=== PATIENT | male | born 1960 | race Caucasian/White ===

== ENCOUNTER 2017-02-26 10:43 | Day surgery (SDC) | payer MEDICARE, OTHER ==
[2017-02-26 11:13] VITALS: TEMP 98.8
[2017-02-26] MEDS ORDERED: SODIUM CHLORIDE 0.9% 500 ML IV ONE (11:26)
[2017-02-26] MEDS ORDERED: fentaNYL (PF) 50 MCG/ML 2 ML AMP ONE (11:51)
[2017-02-26] MEDS ORDERED: MIDAZOLAM 2 MG/2 ML VIAL ONE (11:52)
[2017-02-26] MEDS: BENZOCAINE SPRAY 1 SPRAY CAN MUCOUS MEM ONE ×4 (12:00→12:13)
[2017-02-26] MEDS ORDERED: fentaNYL (PF) 50 MCG/ML 2 ML AMP IVP ONE ×2 (12:09→12:10)
[2017-02-26] MEDS ORDERED: MIDAZOLAM 2 MG/2 ML VIAL IVP ONE ×4 (12:09→12:15)
[2017-02-26 13:43] VITALS: BP 115/77; PULSE 68; RESP 18
--- NOTE | 2017-03-11 16:11 | ECHOT ---
TRANSESOPHAGEAL ECHOCARDIOGRAM This transesophageal echocardiogram was performed after giving intravenous sedation with Versed and fentanyl. The patient tolerated the procedure well. FINDINGS: Left ventricular chamber is normal in size with normal left ventricular systolic function. Mitral valve morphology is normal. Aortic valve is minimally sclerotic. Mild aortic regurgitation is noted. It is a tricuspid valve. Tricuspid valve morphology is normal. Right ventricular and right atrial chambers are normal in size. Interatrial septum is intact. There is no evidence of any PFO by saline contrast study. FINAL IMPRESSION: 1. This transesophageal echocardiogram reveals mild degree of aortic regurgitation. Aortic valve is mildly thickened and it is tricuspid. 2. Aortic root is normal in size. 3. Mitral valve morphology is normal. 4. Left ventricular systolic function is normal. 5. There is no evidence of any PFO. MMODL / IJN: [id number] /
== END 2017-02-26 14:02 | disposition home or self-care (01) ==
LOC: CATHCVL 10:43
PROVIDERS: ATTEND Internal Medicine Cardiovascular Disease
DX: I35.1 Nonrheumatic aortic (valve) insufficiency (principal); R07.89 Other chest pain; Z82.49 Family history of ischemic heart disease and other diseases of the circulatory system; F17.210 Nicotine dependence, cigarettes, uncomplicated; Z88.0 Allergy status to penicillin
CPT/HCPCS: 99152; 93312; 93320; 93325; J2250; J3010

== ENCOUNTER 2017-03-06 15:38 | Inpatient (IN) | payer MEDICARE, MEDICAID ==
--- NOTE | 2017-03-06 16:30 | ED ---
General Adult HPI - General Chief complaint: Psychiatric Symptoms Stated complaint: Mental Health Time Seen by Provider: 03/06/17 15:53 Source: patient, police Mode of arrival: ambulatory Limitations: no limitations - History of Present Illness Initial comments: This is a 56-year-old male with a history of schizophrenia presents emergency Department by pulse or ordered petition. He reportedly has not been taking his medications. The patient does not contribute much to the history and just states "no,". He denies suicidal or homicidal ideation. No physical complaints. - Related Data Home Medications Medication Instructions Recorded Confirmed Albuterol Inhaler [Ventolin Hfa 2 puff INHALATION RT-QID PRN 02/22/17 03/06/17 Inhaler] Ranitidine HCl [Zantac] 150 mg PO DAILY PRN 02/22/17 03/06/17 Acetaminophen Tab [Tylenol] 500 mg PO Q6H PRN 02/26/17 03/06/17 risperiDONE MICROSPHERES 50 mg IM Q14D 03/06/17 03/06/17 [RisperDAL CONSTA] Allergies Allergy/AdvReac Type Severity Reaction Status Date / Time Penicillins Allergy Unknown Verified 03/06/17 16:15 Childhood Review of Systems ROS Statement: Those systems with pertinent positive or pertinent negative responses have been documented in the HPI. ROS Other: All systems not noted in ROS Statement are negative. Past Medical History Past Medical History: GERD/Reflux Additional Past Medical History / Comment(s): SEE H & P OF DR. TOSCANO. NOT SURE WHY HE TAKES ALBUTERAL INHALER. History of Any Multi-Drug Resistant Organisms: None Reported Past Surgical History: Tonsillectomy Past Anesthesia/Blood Transfusion Reactions: No Reported Reaction Past Psychological History: Schizophrenia Smoking Status: Current every day smoker Past Alcohol Use History: None Reported Past Drug Use History: None Reported - Past Family History Mother Family Medical History: No Reported History General Exam - General Exam Comments Initial Comments: Constitutional: Awake alert Appears comfortable Head: Normocephalic atraumatic Eyes: no conjunctival injection No scleral icterus EOMI Neck: No JVD Supple Heart: Regular rate rhythm normal S1-S2 no murmurs Lungs: Clear to auscultation bilaterally No wheezing No rales Abdomen: Soft nondistended nontender Extremities: Non edematous DP pulses intact Radial pulses intact Neuro: A&Ox3 No focal neurologic deficits Psych: Appropriate mood and affect Limitations: no limitations Course Vital Signs 03/06/17 15:40 Temperature 97.9 F Pulse Rate 115 H Respiratory 20 Rate Blood Pressure 138/92 O2 Sat by Pulse 99 Oximetry Medical Decision Making - Medical Decision Making Patient was evaluated by EPS and they recommend inpatient therapy. Patient will be admitted upstairs. The request basic blood work. Patient is currently stable. - Lab Data Lab Results 03/06/17 Range/Units 19:18 POC Glucose (mg/dL) 114 H (75-99) mg/dL POC Glu [place] Interpreter ID Ramy Rojo Disposition Clinical Impression: Schizophrenia Disposition: ADMITTED IP TO THIS HOSP Condition: Stable
[2017-03-06] MEDS ORDERED: FAMOTIDINE 20 MG TAB PO PRN (17:39)
[2017-03-06] MEDS ORDERED: ALBUTEROL INHALER 60 PUFF/8 GM INHALER INHALATION PRN (17:39)
[2017-03-06 19:23] LABS: Glucose,Whole Blood 114 mg/dL (75-99)
[2017-03-06 19:33] LABS: Basophils # (A) 0.1 k/uL (0-0.2); Basophils % (A) 0 %; CH 31.3; CHCM 34.2; Eosinophils # (A) 0.2 k/uL (0-0.7); Eosinophils % (A) 1 %; HCT 40.6 % (39.0-53.0); HDW 2.69; HGB 13.1 gm/dL (13.0-17.5); Luc # (Auto) 0.17; Luc % (Auto) 1; Lymphocytes # (A) 1.7 k/uL (1.0-4.8); Lymphocytes % (A) 13 %; MCH 29.7 pg (25.0-35.0); MCHC 32.4 g/dL (31.0-37.0); MCV 91.7 fL (80.0-100.0); Mean Platelet Volume 7.6; Monocytes # (A) 0.7 k/uL (0-1.0); Monocytes % (A) 5 %; Neutrophils # (A) 10.2 k/uL (1.3-7.7); Neutrophils % (A) 79 %; RBC 4.42 m/uL (4.30-5.90); RDW 13.7 % (11.5-15.5); WBC 12.9 k/uL (3.8-10.6); WBC (Perox) 13.19
[2017-03-06 19:44] LABS: ALT 55 U/L (21-72); AST 24 U/L (17-59); Alkaline Phosphatase 125 U/L (38-126); Anion Gap 12 mmol/L; Blood Urea Nitrogen 11 mg/dL (9-20); Calcium 9.1 mg/dL (8.4-10.2); Carbon Dioxide 21 mmol/L (22-30); Chloride 102 mmol/L (98-107); Glucose 121 mg/dL (74-99); Non-African American GFR(MDRD) >60 (>60 ml/min/1.73 sqM); Potassium 4.4 mmol/L (3.5-5.1); Sodium 135 mmol/L (137-145); Total Bilirubin 0.2 mg/dL (0.2-1.3); Total Protein 6.3 g/dL (6.3-8.2)
[2017-03-06 20:06] VITALS: RESP 16
[2017-03-06] MEDS ORDERED: LORazepam 1 MG TAB PO PRN (20:13)
[2017-03-06] MEDS ORDERED: ACETAMINOPHEN TAB 325 MG TAB PO PRN (20:13)
[2017-03-06] MEDS ORDERED: MAGNESIUM HYDROXIDE 2,400 MG/10 ML CUP PO PRN (20:13)
[2017-03-06] MEDS ORDERED: ZIPRASIDONE 20 MG VIAL IM PRN (20:13)
[2017-03-06] MEDS ORDERED: MAG HYDROX/AL HYDROX/SIMETH 30 ML CUP PO PRN (20:13)
[2017-03-06] MEDS: INSULIN LISPRO (humaLOG) 300 UNIT/3 ML VIAL SQ SCH (21:17)
[2017-03-06] MEDS ORDERED: RX INFO: IV CONTRAST WAS GIVEN 1 EACH MISC MISCELLANE PRN (21:32)
[2017-03-06] MEDS ORDERED: MORPHINE SULFATE 2 MG/ML SYRINGE IVP PRN (21:33)
[2017-03-06] MEDS: IOHEXOL 350 MG/ML 25 ML BOTTLE (ORAL USE) PO PRN ×2 (21:59→22:59)
[2017-03-06 22:49] LABS: Hemoglobin A1C 6.2 % (4.2-6.1)
[2017-03-06 23:40] LABS: Appearance,Urine Clear (Clear); Bilirubin,Urine Negative (Negative); Glucose,Urine (UA) Negative (Negative); Ketones,Urine Trace (Negative); Leukocyte Esterase,Urine Negative (Negative); Nitrite,Urine Negative (Negative); Protein,Urine Trace (Negative); Specific Gravity,Urine 1.013 (1.001-1.035); UA Billing (MACRO vs. MICRO) CHEM; Urobilinogen,Urine <2.0 mg/dL (<2.0)
--- NOTE | 2017-03-06 23:58 | P.CONS ---
History of Present Illness - Reason for Consult Consult date: 03/06/17 - Chief Complaint Abdominal pain and left foot pain - History of Present Illness 66 y/o Male with past medical history significant for intermittent asthma here in the psychiatry unit because of schizophrenia. Initially he was not cooperative with the ER staff but when he came up to the psych unit he started becoming cooperative. He told the staff that he was having abdominal pain ( which he is calling chest pain ) and left foot pain. According to the patient he was seen in an outside facility for chest pain several weeks ago and over there he had a chemical stress test that was normal according to him. He has been having abdominal pain for about a week, the pain is located in the upper part of the abdomen. It has no relationship to food. He denied having any fevers or chills. No nausea or vomiting, no diarrhea. He has also been having some left foot pain that is worse with ambulation. Patient denied having any history of abdominal hernia or surgery in the past. Review of Systems 12 point review of system performed, Negative except for HPI Past Medical History Past Medical History: Asthma, GERD/Reflux Additional Past Medical History / Comment(s): SEE H & P OF DR. TOSCANO. NOT SURE WHY HE TAKES ALBUTERAL INHALER. History of Any Multi-Drug Resistant Organisms: None Reported Past Surgical History: Tonsillectomy Past Anesthesia/Blood Transfusion Reactions: No Reported Reaction Past Psychological History: Schizophrenia Smoking Status: Current every day smoker Past Alcohol Use History: None Reported Past Drug Use History: None Reported - Past Family History Mother Family Medical History: No Reported History Medications and Allergies Home Medications Medication Instructions Recorded Confirmed Type Albuterol Inhaler [Ventolin Hfa 2 puff INHALATION RT-QID PRN 02/22/17 03/06/17 History Inhaler] Ranitidine HCl [Zantac] 150 mg PO DAILY PRN 02/22/17 03/06/17 History Acetaminophen Tab [Tylenol] 500 mg PO Q6H PRN 02/26/17 03/06/17 History risperiDONE MICROSPHERES 50 mg IM Q14D 03/06/17 03/06/17 History [RisperDAL CONSTA] Allergies Allergy/AdvReac Type Severity Reaction Status Date / Time Penicillins Allergy Unknown Verified 03/06/17 16:15 Childhood Physical Exam Vitals: Vital Signs Temp Pulse Pulse Resp BP BP Pulse Ox 03/06/17 20:05 98.4 F 88 16 119/77 99 03/06/17 15:40 97.9 F 115 H 20 138/92 99 Intake and Output 03/06/17 03/06/17 03/07/17 14:59 22:59 06:59 Other: Weight 84.64 kg Patient Weight 03/07/17 06:59 Weight 84.64 kg Constitutional: No acute distress, conversant, pleasant Eyes:Anicteric sclerae, moist conjunctiva, no lid-lag, PERRLA, ENMT: Oropharynx clear, no erythema, exudates Neck: Supple, FROM, no masses, or JVD, No carotid bruits, No thyromegaly Lungs: Clear to auscultation, Clear to percussion, Normal respiratory effort, no accessory muscle use Cardiovascular: Heart regular in rate and rhythm, No murmurs, gallops, or rubs, No peripheral edema Abdominal: Soft, epigastric erythematous bulging that is tender to touch, no guarding, rebound or rigidity, Normoactive bowel sounds, No hepatomegaly, No splenomegaly, No palpable mass Skin: Normal temperature, tone, texture, turgor, no induration, No subcutaneous nodules, No rash, lesions, No ulcers Extremities: No digital cyanosis, No clubbing, Pedal pulses intact and symmetrical, Radial pulses intact and symmetrical, No calf tenderness Psychiatric: Alert and oriented to person, place and time, appropriate affect, intact judgement Neuro: Muscles Strength 5/5 in all 4 extremities, Sensation to light touch grossly present throughout, Cranial nerves II-XII grossly intact, no focal sensory deficits Results CBC & Chem 7: 03/06/17 19:19 03/06/17 19:19 Labs: Abnormal Lab Results - Last 24 Hours (Table) 03/06/17 03/06/17 03/06/17 Range/Units 19:18 19:19 19:19 WBC 12.9 H (3.8-10.6) k/uL Plt Count 573 H (150-450) k/uL Neutrophils # 10.2 H (1.3-7.7) k/uL Sodium 135 L (137-145) mmol/L Carbon Dioxide 21 L (22-30) mmol/L Glucose 121 H (74-99) mg/dL POC Glucose (mg/dL) 114 H (75-99) mg/dL Hemoglobin A1c (4.2-6.1) % Albumin 3.1 L (3.5-5.0) g/dL Urine Protein (Negative) Urine Ketones (Negative) 03/06/17 03/06/17 Range/Units 19:19 19:52 WBC (3.8-10.6) k/uL Plt Count (150-450) k/uL Neutrophils # (1.3-7.7) k/uL Sodium (137-145) mmol/L Carbon Dioxide (22-30) mmol/L Glucose (74-99) mg/dL POC Glucose (mg/dL) (75-99) mg/dL Hemoglobin A1c 6.2 H (4.2-6.1) % Albumin (3.5-5.0) g/dL Urine Protein Trace H (Negative) Urine Ketones Trace H (Negative) Assessment and Plan Plan: #1 acute epigastric abdominal pain: Likely secondary to upper umbilical hernia Stat computed tomography scan of the abdomen to rule out hernia incarceration, further management decisions based on the CT results Check lactic acid Consults Gen. surgery Opiates for pain as needed #2 left foot pain: Likely musculoskeletal Tylenol when necessary #3 schizophrenia: Continue antipsychotics
--- NOTE | 2017-03-07 00:26 | CT ---
EXAMINATION TYPE: CT abdomen pelvis w con DATE OF EXAM: 03/07/2017 COMPARISON: NONE HISTORY: hernia CT DLP: 806.40 mGycm Automated exposure control for dose reduction was used. TECHNIQUE: Helical acquisition of images was performed from the lung bases through the pelvis. CONTRAST: Performed with Oral Contrast and with IV Contrast, patient injected with 100 mL of Omnipaque 300. FINDINGS: Lung bases are clear. There is no pleural effusion. Heart size is normal. There is a small hiatal her aj. Spleen pancreas gallbladder appear normal. Bile ducts are not dilated. Left lobe of the liver i s posteriorly displaced by an epigastric anterior mass. There is no adrenal mass. Kidneys show satisfactory contrast opacification. There is no hydronephrosi s. I see no intestinal wall thickening. There are no dilated loops. Appendix appears normal. Bladder distends smoothly. There is no pelvic mass. There is no ascites. There is narrowing at L5-S1 disc spa ce. I see no bony destructive process. There is a large low density mass in the upper anterior abdominal wall. This mass measures overall 13 x 8 cm and appears to be displacing the left lobe of the liver posteriorly. The mass extends through the anterior abdominal wall into the subcutaneous tissues. There is low attenuation also in the abdo sabrina wall musculature adjacent to the mass. Margins of the mass are irregular. IMPRESSION: THERE IS A LARGE EPIGASTRIC MASS ON BOTH SIDES OF THE ANTERIOR ABDOMINAL WALL. I WOULD CONSIDER MORE LIKELY THE POSSIBILITY OF ABDOMINAL WALL HEMATOMA AND MUSCLE TEAR. THIS DOES NOT APPEAR TO BE ANY TYP E OF HERNIA. THE MASS HAS DENSITY OF 24 WHICH IS CONSISTENT WITH OLD HEMORRHAGE OR A SEROMA. ABSCESS IS IN THE DIFFERENTIAL DIAGNOSIS. THE POSSIBILITY OF A SUPERFICIAL TUMOR OR ABSCESS OR HEMATOMA OF THE LEFT LOBE OF THE LIVER CANNOT BE ENTIRELY EXCLUDED. THERE IS A TINY UMBILICAL HERNIA THAT MEASURES 2 X 1 CM THAT CONTAINS FAT.
[2017-03-07 06:21] VITALS: BP 121/77; PULSE 105; TEMP 97.8
[2017-03-07 06:23] LABS: Glucose,Whole Blood 127 mg/dL (75-99)
[2017-03-07] MEDS: INSULIN LISPRO (humaLOG) 300 UNIT/3 ML VIAL SQ SCH ×3 (08:20→17:11)
[2017-03-07 08:45] LABS: Basophils % (A) 0 %; CH 30.3; CHCM 32.1; Eosinophils # (A) 0.1 k/uL (0-0.7); Eosinophils % (A) 1 %; HCT 41.1 % (39.0-53.0); HDW 2.74; HGB 13.4 gm/dL (13.0-17.5); Hypochromasia Slight; Luc # (Auto) 0.27; Luc % (Auto) 2; Lymphocytes % (A) 16 %; MCH 30.8 pg (25.0-35.0); MCHC 32.6 g/dL (31.0-37.0); MCV 94.5 fL (80.0-100.0); Mean Platelet Volume 7.2; Monocytes # (A) 0.7 k/uL (0-1.0); Monocytes % (A) 5 %; Neutrophils # (A) 9.7 k/uL (1.3-7.7); Neutrophils % (A) 76 %; RBC 4.35 m/uL (4.30-5.90); RDW 13.1 % (11.5-15.5); WBC 12.8 k/uL (3.8-10.6); WBC (Perox) 13.27
[2017-03-07 09:07] LABS: Anion Gap 13 mmol/L; Blood Urea Nitrogen 7 mg/dL (9-20); Calcium 9.5 mg/dL (8.4-10.2); Carbon Dioxide 25 mmol/L (22-30); Chloride 101 mmol/L (98-107); Glucose 101 mg/dL (74-99); Non-African American GFR(MDRD) >60 (>60 ml/min/1.73 sqM); Potassium 4.8 mmol/L (3.5-5.1); Sodium 139 mmol/L (137-145)
[2017-03-07 12:32] LABS: Glucose,Whole Blood 101 mg/dL (75-99)
--- NOTE | 2017-03-07 12:34 | P.PN ---
Subjective Progress Note Date: 03/07/17 Principal diagnosis: abd pain Patient is a 56-year-old male with a past medical history of schizophrenia and depressive disorder who was brought in secondary to necrotic behaviors. We will consult elevated for medical management. He was found to have abdominal pain and a large abdominal wall mass. CT was performed which showed possible hematoma versus abscess. General surgery has been consult it. Patient seen and examined at bedside. He states that this lesion has been there approximately one week. He denies any trauma to the area, falls, self inflicted injury. He states that there was never a bruise there area he also reports decreased appetite and poor ability to intake food. He reports no nausea or vomiting. He has not had any diarrhea. He states that the lesion hurts more with palpation and movement. He has no other complaints currently. Objective - Vital Signs Vital signs: Vital Signs Temp 97.8 F 03/07/17 06:21 Pulse 105 H 03/07/17 06:21 Resp 16 03/07/17 06:21 BP 121/77 03/07/17 06:21 Pulse Ox 99 03/06/17 20:05 Intake & Output 03/06/17 03/07/17 03/07/17 18:59 06:59 18:59 Weight 84.64 kg - Exam General: non toxic, no distress, appears at stated age Derm: Erythema and warmth on abdominal mass, no rashes, no lesions Head: atraumatic, normocephalic, symmetric Eyes: EOMI, no lid lag, anicteric sclera ENT: no post nasal drip, no thrush Mouth: no lip lesion, mucus membranes moist Cardiovascular: S1S2 reg, no murmur, positive posterior tibial pulse bilateral, Lungs: CTA bilateral, no rhonchi, no rales , no accessory muscle use Abdominal: soft, tender to palpation of mass area, this is a non-fluctuant area and extending from approximately 2 inches above the umbilicus to just below the lower margin of the ribs, and is excruciatingly tender to palpation., no guarding, no appreciable organomegaly Ext: no gross muscle atrophy, no edema, no contractures Neuro: CN II-XI grossly intact, no focal neuro deficits Psych: Alert, oriented, flat affect - Labs CBC & Chem 7: 03/07/17 08:06 03/07/17 08:06 Labs: Abnormal Lab Results - Last 24 Hours (Table) 03/06/17 03/06/17 03/06/17 Range/Units 19:18 19:19 19:19 WBC 12.9 H (3.8-10.6) k/uL Plt Count 573 H (150-450) k/uL Neutrophils # 10.2 H (1.3-7.7) k/uL Sodium 135 L (137-145) mmol/L Carbon Dioxide 21 L (22-30) mmol/L BUN (9-20) mg/dL Glucose 121 H (74-99) mg/dL POC Glucose (mg/dL) 114 H (75-99) mg/dL Hemoglobin A1c (4.2-6.1) % Albumin 3.1 L (3.5-5.0) g/dL Urine Protein (Negative) Urine Ketones (Negative) 03/06/17 03/06/17 03/07/17 Range/Units 19:19 19:52 06:20 WBC (3.8-10.6) k/uL Plt Count (150-450) k/uL Neutrophils # (1.3-7.7) k/uL Sodium (137-145) mmol/L Carbon Dioxide (22-30) mmol/L BUN (9-20) mg/dL Glucose (74-99) mg/dL POC Glucose (mg/dL) 127 H (75-99) mg/dL Hemoglobin A1c 6.2 H (4.2-6.1) % Albumin (3.5-5.0) g/dL Urine Protein Trace H (Negative) Urine Ketones Trace H (Negative) 03/07/17 03/07/17 03/07/17 Range/Units 08:06 08:06 12:31 WBC 12.8 H (3.8-10.6) k/uL Plt Count 562 H (150-450) k/uL Neutrophils # 9.7 H (1.3-7.7) k/uL Sodium (137-145) mmol/L Carbon Dioxide (22-30) mmol/L BUN 7 L (9-20) mg/dL Glucose 101 H (74-99) mg/dL POC Glucose (mg/dL) 101 H (75-99) mg/dL Hemoglobin A1c (4.2-6.1) % Albumin (3.5-5.0) g/dL Urine Protein (Negative) Urine Ketones (Negative) Assessment and Plan Plan: Abdominal wall mass -Differentially includes hematoma versus abscess -Await general surgery consult, I suspect that this will likely need to be drained -Monitor CBC, may need empiric antibiotics pending surgery consultation Mild intermittent asthma -When necessary breathing treatments Schizophrenia -Your psychiatric management We will continue to follow along with you, I suspect that if this needs to be drained patient will need to be transferred to the psych unit Spoke with the psychiatric nurse after patient was evaluated by surgery and he will need surgical procedure in a.m. and therefore will be transferred to the general medical surgical floor. Psychiatry will continue to follow.
--- NOTE | 2017-03-07 15:33 | P.GSCN ---
History of Present Illness Consult date: 03/07/17 Reason for Consult: Abdominal wall mass History of present illness: Patient is a 56-year-old male with known schizophrenia. He came to the hospital after he was found to not be taking his medications appropriately. During the course of his evaluation he was found to have a upper abdominal swelling that is painful. He describes having this for the last week or so. No history of similar events. Denies any trauma to that area self-inflicted or other. No prior surgeries. Patient is denying fevers. His white blood cell count is elevated. He is afebrile. He is slightly tachycardic. He was unaware that the skin overlying this was pink so it is unclear how long the suspected area of erythema has been present. He seems appropriate at this time. CAT scan was performed. This was reviewed. There is a fluid collection involving the anterior abdominal wall that does extend below the fascia into the perihepatic region. This does not appear to be necessarily emanating from the liver as much as it is pushing onto the liver margin anteriorly. No mass lesion is seen. The Hounsfield units suggest fluid rather than solid. Hematoma thought to be less likely then infectious fluid. Review of Systems The patient denies any acute changes in vision or hearing, no dysphagia or odynophagia, no chest pain or shortness of breath, no dysuria or hematuria, no headache, no runny nose, no rectal bleeding or melena, no unexplained weight loss Past Medical History Past Medical History: Asthma, GERD/Reflux Additional Past Medical History / Comment(s): SEE H & P OF DR. TOSCANO. NOT SURE WHY HE TAKES ALBUTERAL INHALER. History of Any Multi-Drug Resistant Organisms: None Reported Past Surgical History: Tonsillectomy Past Anesthesia/Blood Transfusion Reactions: No Reported Reaction Past Psychological History: Schizophrenia Smoking Status: Current every day smoker Past Alcohol Use History: None Reported Past Drug Use History: None Reported - Past Family History Mother Family Medical History: No Reported History Medications and Allergies Home Medications Medication Instructions Recorded Confirmed Type Albuterol Inhaler [Ventolin Hfa 2 puff INHALATION RT-QID PRN 02/22/17 03/06/17 History Inhaler] Ranitidine HCl [Zantac] 150 mg PO DAILY PRN 02/22/17 03/06/17 History Acetaminophen Tab [Tylenol] 500 mg PO Q6H PRN 02/26/17 03/06/17 History risperiDONE MICROSPHERES 50 mg IM Q14D 03/06/17 03/06/17 History [RisperDAL CONSTA] Allergies Allergy/AdvReac Type Severity Reaction Status Date / Time Penicillins Allergy Unknown Verified 03/06/17 16:15 Childhood Surgical - Exam Vital Signs Temp Pulse Resp BP Pulse Ox 97.9 F 115 H 20 138/92 99 03/06/17 15:40 03/06/17 15:40 03/06/17 15:40 03/06/17 15:40 03/06/17 15:40 Physical exam: General: Well-developed, well-nourished HEENT: Normocephalic, sclerae nonicteric Abdomen: Upper abdominal mass measuring 10 x 12 cm with central area of erythema , fluctuance noted, this mass is tender, no bruising, nondistended Extremities: No edema Neuro: Alert and oriented Results - Labs 03/07/17 08:06 03/07/17 08:06 Abnormal Lab Results - Last 24 Hours (Table) 03/06/17 03/06/17 03/06/17 Range/Units 19:18 19:19 19:19 WBC 12.9 H (3.8-10.6) k/uL Plt Count 573 H (150-450) k/uL Neutrophils # 10.2 H (1.3-7.7) k/uL Sodium 135 L (137-145) mmol/L Carbon Dioxide 21 L (22-30) mmol/L BUN (9-20) mg/dL Glucose 121 H (74-99) mg/dL POC Glucose (mg/dL) 114 H (75-99) mg/dL Hemoglobin A1c (4.2-6.1) % Albumin 3.1 L (3.5-5.0) g/dL Urine Protein (Negative) Urine Ketones (Negative) 03/06/17 03/06/17 03/07/17 Range/Units 19:19 19:52 06:20 WBC (3.8-10.6) k/uL Plt Count (150-450) k/uL Neutrophils # (1.3-7.7) k/uL Sodium (137-145) mmol/L Carbon Dioxide (22-30) mmol/L BUN (9-20) mg/dL Glucose (74-99) mg/dL POC Glucose (mg/dL) 127 H (75-99) mg/dL Hemoglobin A1c 6.2 H (4.2-6.1) % Albumin (3.5-5.0) g/dL Urine Protein Trace H (Negative) Urine Ketones Trace H (Negative) 03/07/17 03/07/17 03/07/17 Range/Units 08:06 08:06 12:31 WBC 12.8 H (3.8-10.6) k/uL Plt Count 562 H (150-450) k/uL Neutrophils # 9.7 H (1.3-7.7) k/uL Sodium (137-145) mmol/L Carbon Dioxide (22-30) mmol/L BUN 7 L (9-20) mg/dL Glucose 101 H (74-99) mg/dL POC Glucose (mg/dL) 101 H (75-99) mg/dL Hemoglobin A1c (4.2-6.1) % Albumin (3.5-5.0) g/dL Urine Protein (Negative) Urine Ketones (Negative) Diabetes panel 03/06/17 03/06/17 03/07/17 Range/Units 19:19 19:19 08:06 Sodium 135 L 139 (137-145) mmol/L Potassium 4.4 4.8 (3.5-5.1) mmol/L Chloride 102 101 (98-107) mmol/L Carbon Dioxide 21 L 25 (22-30) mmol/L BUN 11 7 L (9-20) mg/dL Creatinine 0.70 0.74 (0.66-1.25) mg/dL Glucose 121 H 101 H (74-99) mg/dL Hemoglobin A1c 6.2 H (4.2-6.1) % Calcium 9.1 9.5 (8.4-10.2) mg/dL AST 24 (17-59) U/L ALT 55 (21-72) U/L Alkaline Phosphatase 125 (38-126) U/L Total Protein 6.3 (6.3-8.2) g/dL Albumin 3.1 L (3.5-5.0) g/dL Thyroid panel 03/06/17 Range/Units 19:19 TSH 4.590 (0.465-4.680) mIU/L Calcium panel 03/06/17 03/07/17 Range/Units 19:19 08:06 Calcium 9.1 9.5 (8.4-10.2) mg/dL Albumin 3.1 L (3.5-5.0) g/dL Pituitary panel 03/06/17 03/07/17 Range/Units 19:19 08:06 Sodium 135 L 139 (137-145) mmol/L Potassium 4.4 4.8 (3.5-5.1) mmol/L Chloride 102 101 (98-107) mmol/L Carbon Dioxide 21 L 25 (22-30) mmol/L BUN 11 7 L (9-20) mg/dL Creatinine 0.70 0.74 (0.66-1.25) mg/dL Glucose 121 H 101 H (74-99) mg/dL Calcium 9.1 9.5 (8.4-10.2) mg/dL TSH 4.590 (0.465-4.680) mIU/L Adrenal panel 03/06/17 03/07/17 Range/Units 19:19 08:06 Sodium 135 L 139 (137-145) mmol/L Potassium 4.4 4.8 (3.5-5.1) mmol/L Chloride 102 101 (98-107) mmol/L Carbon Dioxide 21 L 25 (22-30) mmol/L BUN 11 7 L (9-20) mg/dL Creatinine 0.70 0.74 (0.66-1.25) mg/dL Glucose 121 H 101 H (74-99) mg/dL Calcium 9.1 9.5 (8.4-10.2) mg/dL Total Bilirubin 0.2 (0.2-1.3) mg/dL AST 24 (17-59) U/L ALT 55 (21-72) U/L Alkaline Phosphatase 125 (38-126) U/L Total Protein 6.3 (6.3-8.2) g/dL Albumin 3.1 L (3.5-5.0) g/dL Assessment and Plan (1) Abdominal wall fluid collections Narrative/Plan: CAT scan findings were discussed with the patient. This was also reviewed with the radiologist. At this point I am suggesting we proceed with incision and drainage of the abdominal wall fluid collection. Cytology may or may not be obtained based on the appearance of the fluid. Cultures will be obtained. This incision site will likely be left open and will be packed. We will try to appropriately drained the subfascial fluid collection as well. The risks of the procedure were discussed with the patient. These risks are noted to include but are not limited to bleeding, progressive infection, hernia, chronic wound formation, fistula formation, potential findings of malignancy, and anesthesia-related complications. He understands and wishes to proceed. Status: Acute
[2017-03-07 17:20] LABS: Glucose,Whole Blood 114 mg/dL (75-99)
--- NOTE | 2017-03-08 20:16 | P.HP ---
Psychiatric H&P - . H&P Date: 03/07/17 History & Physical: Allergies Allergy/AdvReac Type Severity Reaction Status Date / Time Penicillins Allergy Unknown Verified 03/06/17 16:15 Childhood Vital Signs Temp 97.8 F 03/07/17 06:21 Pulse 105 H 03/07/17 06:21 Resp 16 03/07/17 06:21 BP 121/77 03/07/17 06:21 Pulse Ox 99 03/06/17 20:05 Intake & Output 03/06/17 03/07/17 03/07/17 18:59 06:59 18:59 Weight 84.64 kg Laboratory Last Values WBC 12.8 k/uL (3.8-10.6) H 03/07/17 08:06 RBC 4.35 m/uL (4.30-5.90) 03/07/17 08:06 Hgb 13.4 gm/dL (13.0-17.5) 03/07/17 08:06 Hct 41.1 % (39.0-53.0) 03/07/17 08:06 MCV 94.5 fL (80.0-100.0) 03/07/17 08:06 MCH 30.8 pg (25.0-35.0) 03/07/17 08:06 MCHC 32.6 g/dL (31.0-37.0) 03/07/17 08:06 RDW 13.1 % (11.5-15.5) 03/07/17 08:06 Plt Count 562 k/uL (150-450) H 03/07/17 08:06 Neutrophils % 76 % 03/07/17 08:06 Lymphocytes % 16 % 03/07/17 08:06 Monocytes % 5 % 03/07/17 08:06 Eosinophils % 1 % 03/07/17 08:06 Basophils % 0 % 03/07/17 08:06 Neutrophils # 9.7 k/uL (1.3-7.7) H 03/07/17 08:06 Lymphocytes # 2.0 k/uL (1.0-4.8) 03/07/17 08:06 Monocytes # 0.7 k/uL (0-1.0) 03/07/17 08:06 Eosinophils # 0.1 k/uL (0-0.7) 03/07/17 08:06 Basophils # 0.0 k/uL (0-0.2) 03/07/17 08:06 Hypochromasia Slight 03/07/17 08:06 Sodium 139 mmol/L (137-145) 03/07/17 08:06 Potassium 4.8 mmol/L (3.5-5.1) 03/07/17 08:06 Chloride 101 mmol/L (98-107) 03/07/17 08:06 Carbon Dioxide 25 mmol/L (22-30) 03/07/17 08:06 Anion Gap 13 mmol/L 03/07/17 08:06 BUN 7 mg/dL (9-20) L 03/07/17 08:06 Creatinine 0.74 mg/dL (0.66-1.25) 03/07/17 08:06 Est GFR (MDRD) Af Amer >60 (>60 ml/min/1.73 sqM) 03/07/17 08:06 Est GFR (MDRD) Non-Af >60 (>60 ml/min/1.73 sqM) 03/07/17 08:06 Glucose 101 mg/dL (74-99) H 03/07/17 08:06 POC Glucose (mg/dL) 114 mg/dL (75-99) H 03/07/17 17:10 POC Glu Emergency Planning And Response Manager Katrin Celeste 03/07/17 17:[address] Glu mg/dL 131 mg/dL 03/06/17 19:19 Hemoglobin A1c 6.2 % (4.2-6.1) H 03/06/17 19:19 Plasma Lactic Acid Maldonado 0.8 mmol/L (0.7-2.0) 03/07/17 00:14 Calcium 9.5 mg/dL (8.4-10.2) 03/07/17 08:06 Total Bilirubin 0.2 mg/dL (0.2-1.3) 03/06/17 19:19 AST 24 U/L (17-59) 03/06/17 19:19 ALT 55 U/L (21-72) 03/06/17 19:19 Alkaline Phosphatase 125 U/L (38-126) 03/06/17 19:19 Total Protein 6.3 g/dL (6.3-8.2) 03/06/17 19:19 Albumin 3.1 g/dL (3.5-5.0) L 03/06/17 19:19 TSH 4.590 mIU/L (0.465-4.680) 03/06/17 19:19 Urine Color Yellow 03/06/17 19:52 Urine Appearance Clear (Clear) 03/06/17 19:52 Urine pH 6.0 (5.0-8.0) 03/06/17 19:52 Ur Specific [place] 1.013 (1.001-1.035) 03/06/17 19:52 Urine Protein Trace (Negative) H 03/06/17 19:52 Urine Glucose (UA) Negative (Negative) 03/06/17 19:52 Urine Ketones Trace (Negative) H 03/06/17 19:52 Urine Blood Negative (Negative) 03/06/17 19:52 Urine Nitrite Negative (Negative) 03/06/17 19:52 Urine Bilirubin Negative (Negative) 03/06/17 19:52 Urine Urobilinogen <2.0 mg/dL (<2.0) 03/06/17 19:52 Ur Leukocyte Esterase Negative (Negative) 03/06/17 19:52 Urine Opiates Screen Not Detected (NotDetected) 03/06/17 19:52 Ur Oxycodone Screen Not Detected (NotDetected) 03/06/17 19:52 Urine Methadone Screen Not Detected (NotDetected) 03/06/17 19:52 Ur Propoxyphene Screen Not Detected (NotDetected) 03/06/17 19:52 Ur Barbiturates Screen Not Detected (NotDetected) 03/06/17 19:52 U Tricyclic Antidepress Not Detected (NotDetected) 03/06/17 19:52 Ur Phencyclidine Scrn Not Detected (NotDetected) 03/06/17 19:52 Ur Amphetamines Screen Not Detected (NotDetected) 03/06/17 19:52 U Methamphetamines Scrn Not Detected (NotDetected) 03/06/17 19:52 U Benzodiazepines Scrn Not Detected (NotDetected) 03/06/17 19:52 Urine Cocaine Screen Not Detected (NotDetected) 03/06/17 19:52 U Marijuana (THC) Screen Not Detected (NotDetected) 03/06/17 19:52 HPI: Patient is a 56 year old male who presented to the [facility] by police escort having been brought in on a pickup order. Patient was evaluated by Medicine who elevated Surgery Patient was discharged off [facility] into care of surgery for inpatient care. During brief [facility] stay patient received Risperdal Consta 50-mg IM on 03/06/2017. PSYCHIATRIC HISTORY: patient refuses to discuss past psychiatric history, he will endorse past hospitalizations and taking Risperdal Consta which he has been off for "a long time" PMH: Past Medical History Past Medical History: Asthma, GERD/Reflux Additional Past Medical History / Comment(s): Aortic regurg, [facility] ANGELITO with thickend aortic valve 02/26/2017 Dr. Cruz suggested medical management. History of Any Multi-Drug Resistant Organisms: None Reported Past Surgical History: Tonsillectomy Additional Past Surgical History / Comment(s): cyst on neck Past Anesthesia/Blood Transfusion Reactions: No Reported Reaction Past Psychological History: Schizophrenia Smoking Status: Current every day smoker Past Alcohol Use History: None Reported Additional Past Alcohol Use History / Comment(s): 1/2 PPD FOR 10 YEARS Past Drug Use History: None Reported HOME MEDICATIONS: 3 Medication Instructions Recorded Confirmed Albuterol Inhaler [Ventolin Hfa 2 puff INHALATION RT-QID PRN 02/22/17 03/07/17 Inhaler] Ranitidine HCl [Zantac] 150 mg PO DAILY PRN 02/22/17 03/07/17 Acetaminophen Tab [Tylenol] 500 mg PO Q6H PRN 02/26/17 03/07/17 risperiDONE MICROSPHERES 50 mg IM Q14D 03/06/17 03/07/17 [RisperDAL CONSTA] ALLERGIES: 3 Allergy/AdvReac Type Severity Reaction Status Date / Time Penicillins Allergy Unknown Verified 03/07/17 19:30 Childhood STRENGTHS/WEAKNESSES: "perseverance," lack of social support MENTAL STATUS EXAM: Appearance: somnolent, appears older than stated age Behavior: psychomotor retardation+++, no abnormal movements, fair eye contact Attitude: cooperative Speech: normal rate, rhythm, fluency, articulation, volume soft, and prosody; primary language: Lithuanian Mood: "fine" Affect: congruent, flat, immobile Thought processes: concrete Thought content: patient: appears to be responding to internal stimuli at times, denies AVH, denies SI/HI Insight: poor Judgment: poor Cognitive: oriented to all 3 spheres, average intelligence Assessment and Plan (1) Schizophrenia Narrative/Plan: Patient received Risperdal Consta 50-mg IM on 03/06/2017, next injection is due on 03/20/2017 Patient was evaluated by consulted Medicine team who in turn consulted Surgery, patient will be discharged from [facility] to their care for medical/surgical care for abdominal mass Psychiatry will follow Status: Acute Time with Patient: Greater than 30
--- NOTE | 2017-03-08 20:25 | P.DS ---
Providers Date of admission: 03/06/17 19:10 Expected date of discharge: 03/07/17 Attending physician: Ganesh Huang DO Consults: 03/06/17 20:13 Consult Physician Routine Consulting Provider: Cipriano Lucas Consult Reason/Comments: h&p Do you want consulting provider notified?: Already Contacted 03/07/17 00:00 Consult Physician Routine Consulting Provider: Jovon Turner Consult Reason/Comments: hernia Do you want consulting provider notified?: Yes, Notify in am Primary care physician: Stated None - Discharge Diagnosis(es) (1) Schizophrenia Status: Acute Hospital Course: HPI: Patient is a 56 year old male who presented to the [facility] by police escort having been brought in on a pickup order. Patient was evaluated by Medicine who elevated Surgery Patient was discharged off [facility] into care of surgery for inpatient care. During brief [facility] stay patient received Risperdal Consta 50-mg IM on 03/06/2017. MENTAL STATUS EXAM: Appearance: somnolent, appears older than stated age Behavior: psychomotor retardation+++, no abnormal movements, fair eye contact Attitude: cooperative Speech: normal rate, rhythm, fluency, articulation, volume soft, and prosody; primary language: Swedish Mood: "fine" Affect: congruent, flat, immobile Thought processes: concrete Thought content: patient: appears to be responding to internal stimuli at times, denies AVH, denies SI/HI Insight: poor Judgment: poor Cognitive: oriented to all 3 spheres, average intelligence Assessment and Plan (1) Schizophrenia Narrative/Plan: Patient received Risperdal Consta 50-mg IM on 03/06/2017, next injection is due on 03/20/2017 Patient was evaluated by consulted Medicine team who in turn consulted Surgery, patient will be discharged from [facility] to their care for medical/surgical care for abdominal mass Psychiatry will follow Patient Condition at Discharge: Stable Plan - Discharge Summary New Discharge Prescriptions: No Action Ranitidine HCl [Zantac] 150 mg PO DAILY PRN PRN Reason: Indigestion Albuterol Inhaler [Ventolin Hfa Inhaler] 2 puff INHALATION RT-QID PRN PRN Reason: Shortness Of Breath Acetaminophen Tab [Tylenol] 500 mg PO Q6H PRN PRN Reason: Pain risperiDONE MICROSPHERES [RisperDAL CONSTA] 50 mg IM Q14D Discharge Medication List Albuterol Inhaler [Ventolin Hfa Inhaler] 2 puff INHALATION RT-QID PRN 02/22/17 [ History] Ranitidine HCl [Zantac] 150 mg PO DAILY PRN 02/22/17 [History] Acetaminophen Tab [Tylenol] 500 mg PO Q6H PRN 02/26/17 [History] risperiDONE MICROSPHERES [RisperDAL CONSTA] 50 mg IM Q14D 03/06/17 [History] Discharge Disposition: ADMITTED IP TO THIS HOSP
== END 2017-03-07 17:25 | disposition short-term general hospital (02) | DRG 885 ==
LOC: EC 15:38 → 3MHU 19:10
PROVIDERS: ADMIT Psychiatry & Neurology Psychiatry; ATTEND Psychiatry & Neurology Psychiatry
DX: F20.9 Schizophrenia, unspecified (principal); F32.9 Major depressive disorder, single episode, unspecified; F17.200 Nicotine dependence, unspecified, uncomplicated; J45.20 Mild intermittent asthma, uncomplicated; K21.9 Gastro-esophageal reflux disease without esophagitis; R40.0 Somnolence; S30.1XXA Contusion of abdominal wall, initial encounter; K42.9 Umbilical hernia without obstruction or gangrene; T48.6X6A Underdosing of antiasthmatics, initial encounter; T43.596A Underdosing of other antipsychotics and neuroleptics, initial encounter; T47.0X6A Underdosing of histamine H2-receptor blockers, initial encounter; M79.672 Pain in left foot; Z88.0 Allergy status to penicillin; Z90.49 Acquired absence of other specified parts of digestive tract; Z79.899 Other long term (current) drug therapy; X83.8XXA Intentional self-harm by other specified means, initial encounter
CPT/HCPCS: 74177; 80048; 80053; 80306; 81003; 82075; 83036; 83605; 84443; 85025; 99285

== ENCOUNTER 2017-03-07 16:01 | Inpatient (IN) | payer MEDICARE, OTHER ==
[2017-03-07] MEDS ORDERED: MELATONIN 3 MG TABLET PO PRN (17:56)
[2017-03-07] MEDS ORDERED: CALCIUM CARBONATE 500 MG CHEWABLE PO PRN (17:56)
[2017-03-07] MEDS ORDERED: NALOXONE 0.4 MG/ML 1 ML VIAL IV PRN (17:56)
[2017-03-07] MEDS ORDERED: ONDANSETRON 4 MG/2 ML VIAL IVP PRN (17:56)
[2017-03-07] MEDS ORDERED: MORPHINE SULFATE 2 MG/ML SYRINGE IV PRN (17:56)
[2017-03-07] MEDS ORDERED: BISACODYL 5 MG TABLET.DR PO PRN (17:56)
[2017-03-07 18:00] VITALS: BMI 25.9
[2017-03-07] MEDS ORDERED: IV VANCOMYCIN PER PHARMACY 1 EACH MISC MISCELLANE PRN (18:00)
[2017-03-07] MEDS ORDERED: SODIUM CHLORIDE 0.9% 500 ML IV ONE (18:05)
[2017-03-07] MEDS ORDERED: ALBUTEROL NEBULIZED 2.5 MG/3 ML INHALATION PRN (18:06)
[2017-03-07] MEDS ORDERED: NICOTINE POLACRILEX 2 MG GUM BUCCAL PRN (18:07)
--- NOTE | 2017-03-07 18:19 | P.HPIM ---
History of Present Illness H&P Date: 03/07/17 Chief Complaint: abdominal pain Patient is a 56-year-old male with a past medical history of asthma, GERD, schizophrenia who initially presented to the ER with [place] police department with court ordered petition. In the ER he was rather cooperative with the evaluation. His initial vital signs showed a tachycardia with a heart rate of 115. His initial laboratory analysis demonstrated a leukocytosis with white blood cell count of 12.9, elevated platelets at 573, low sodium and 135, an elevated glucose at 121. He was medically cleared by the emergency department physician and admitted to the psychiatry unit. We were initially consult for medical management. When he was seen by my partner Dr. Barnett was found to have abdominal pain and a CT was ordered secondary to abdominal masses being palpated. CT demonstrated possible hematoma versus abscess of the abdominal wall. Surgery evaluated the patient and determined it would be best to incise and drain this as they were concerned it was infectious. He therefore was transferred to the general medical floor for further care. Patient seen and examined at bedside. He complains of abdominal pain that is worse with movement and palpation. Does better with rest. He denies any known injury to his abdomen including falls, or self-inflicted injury. He states this mass showed up approximately one week ago. Did not notice any associated bruising. He was unaware that it was erythematous. He also reports decreased oral intake with poor appetite. He states he is just not able to eat that much. He denies any nausea or vomiting. He denies any history of severe coughing. He has not had anything like this before. Review of Systems General: no fever/chills, no rigors, no weight loss/weight gain, decreased appetite Eyes: No double vision, no unusual blurry vision, no loss of vision ENT: No rhinorrhea, congestion, no trush Cardiovascular: No chest pain, no palpitations, no syncope, no edema, No paroxysmal nocturnal dyspnea, No dizziness Pulmonary: No shortness of breath, no wheezing, no cough, hemoptysis Abdominal: + Abdominal pain, no constipation, no diarrhea, no vomiting, no nausea, no distention Genitourinary: No dysuria, no urinary frequency, no hematuria, no unusual discharge/odor Neuro: No unusual paresthesias, no unusual paresis/paralysis, no headache Dermatologic: No unusual rashes, no unusual lesions, no unusual changes in nails Endocrinology: No intolerance to heat/cold, no excessive thirst,] no unusual fatigue Hematologic: No unusual bruising or bleeding, no unusual cervical lymphadenopathy Psychiatric: No changes in mood or behaviors, no changes in sleep pattern Past Medical History Past Medical History: Asthma, GERD/Reflux Additional Past Medical History / Comment(s): Aortic regurg, Lexiscan stress test [facility] Jan, ANGELITO with thickend aortic valve 02/26/2017 Dr. Cruz suggested medical management. History of Any Multi-Drug Resistant Organisms: None Reported Past Surgical History: Tonsillectomy Additional Past Surgical History / Comment(s): cyst on neck Past Anesthesia/Blood Transfusion Reactions: No Reported Reaction Past Psychological History: Schizophrenia Smoking Status: Current every day smoker Past Alcohol Use History: None Reported Additional Past Alcohol Use History / Comment(s): 1/2 PPD FOR 10 YEARS Past Drug Use History: None Reported - Past Family History Mother Family Medical History: Myocardial Infarction ([place]) (heart diseae with bypass surgery) Father Family Medical History: Myocardial Infarction ([place]) Brother(s) Family Medical History: Myocardial Infarction ([place]) Medications and Allergies Home Medications Medication Instructions Recorded Confirmed Type Albuterol Inhaler [Ventolin Hfa 2 puff INHALATION RT-QID PRN 02/22/17 03/06/17 History Inhaler] Ranitidine HCl [Zantac] 150 mg PO DAILY PRN 02/22/17 03/06/17 History Acetaminophen Tab [Tylenol] 500 mg PO Q6H PRN 02/26/17 03/06/17 History risperiDONE MICROSPHERES 50 mg IM Q14D 03/06/17 03/06/17 History [RisperDAL CONSTA] Allergies Allergy/AdvReac Type Severity Reaction Status Date / Time Penicillins Allergy Unknown Verified 03/06/17 16:15 Childhood Physical Exam Osteopathic Statement: *. No significant issues noted on an osteopathic structural exam other than those noted in the History and Physical/Consult. Vitals: Intake and Output 03/07/17 03/07/17 03/07/17 06:59 14:59 22:59 Other: Weight 84.368 kg Patient Weight 03/08/17 06:59 Weight 84.368 kg General: Ill-appearing, disheveled, no distress, appears at stated age, normal weight Derm: Erythema over abdominal wall mass no rashes, no lesions, no ulcers, no unusual ecchymoses Head: atraumatic, normocephalic, symmetric Eyes: EOMI, no lid lag, anicteric sclera, pupils equal round reactive to light ENT: no post nasal drip, no thrush , nearest patent, no pharyngeal erythema Neck: No thyromegaly, no cervical lymphadenopathy, trachea midline, supple Mouth: no lip lesion, mucus membranes moist Cardiovascular: S1S2 reg, no murmur, positive posterior tibial pulse bilateral, no edema , no JVD, no clubbing, no cyanosis, capillary refill less than 2 seconds Lungs: CTA bilateral, no rhonchi, no rales , no accessory muscle use Abdominal: soft, midline periumbilical abdominal wall mass with erythema and tenderness to palpation, no guarding, no appreciable organomegaly, normal bowel sounds Ext: no gross muscle atrophy, muscle strength 5 out of 5 in all 4 extremities grossly, no contractures, Neuro: CN II-XI grossly intact, light touch intact all 4 extremities, finger to nose within normal limits, Psych: Alert, oriented, appropriate affect Results CT scan - abdomen: report reviewed, image reviewed Thrombosis Risk Factor Assmnt - DVT/VTE Prophylaxis DVT/VTE Prophylaxis: Pharmacologic Prophylaxis ordered Assessment and Plan Plan: Abdominal wall mass Suspect abscess versus hematoma, less likely The sepsis criteria and therefore will start IV fluids, will check blood cultures, will start IV vancomycin -Surgery consultation, they have artery seen him in the psychiatry unit and plan on taking him for incision and drainage tomorrow -Nothing by mouth after midnight -No DVT prophylaxis until after surgical procedure performed -Follow CBC Sepsis -Treatment as outlined above Mild intermittent asthma -As needed bronchodilators Schizophrenia -Psychiatry consultation Tobacco abuse -Smoking cessation -Nicotine replacement Mild aortic regurgitation -Following up with cardiology as an outpatient and being treated medically -Recent ANGELITO and 02/26/2017 GERD -PPI EKG is being obtained, as long as there are no significant abnormalities patient would be considered low risk for this non-cardiac procedure. He has had a recent negative Lexiscan per cardiology notes. He has also had a recent ANGELITO. He denies any recent chest pain, shortness of breath, or palpitations. He states he would easily be able to walk up a flight of stairs and has been walking approximately 10 city blocks without complaints. Surrogate decision maker: Ade treva Code stuts: Full DVT prophylaxis: SCDs Discussed with: Patient, psychiatry nurse, Dr. Turner Anticipated discharge: 48-[address]: likely will need to return to mental health A total of 60 minutes was spent on the care of this complex patient more than 50 % of the time was spent in counseling and care coordination.
[2017-03-07] MEDS ORDERED: VANCOMYCIN 1,750 MG in SODIUM CHLORIDE 0.9% 250 ML IVPB ONE (18:30)
[2017-03-07] MEDS: HYDROcodone/APAP 5-325MG 1 EACH TAB PO PRN ×2 (18:38→22:44)
[2017-03-07] MEDS: SODIUM CHLORIDE 0.9% 1,000 ML IV SCH (18:43)
[2017-03-07] MEDS: FAMOTIDINE 20 MG TAB PO SCH (21:19)
[2017-03-08] MEDS: VANCOMYCIN 1,500 MG in SODIUM CHLORIDE 0.9% 250 ML IVPB SCH ×3 (02:56→18:01)
[2017-03-08] MEDS ORDERED: MORPHINE SULFATE 10 MG/ML SYRINGE IV PRN (04:56)
[2017-03-08] MEDS: SODIUM CHLORIDE 0.9% 1,000 ML IV SCH ×3 (06:06→23:43)
[2017-03-08 07:38] LABS: CHCM 32.7; HCT 39.8 % (39.0-53.0); HDW 2.66; HGB 12.4 gm/dL (13.0-17.5); MCH 29.6 pg (25.0-35.0); MCHC 31.2 g/dL (31.0-37.0); MCV 95.1 fL (80.0-100.0); Mean Platelet Volume 7.7; RBC 4.19 m/uL (4.30-5.90); RDW 13.6 % (11.5-15.5); WBC 11.5 k/uL (3.8-10.6)
[2017-03-08 07:45] LABS: Anion Gap 11 mmol/L; Blood Urea Nitrogen 9 mg/dL (9-20); Calcium 8.8 mg/dL (8.4-10.2); Carbon Dioxide 23 mmol/L (22-30); Chloride 105 mmol/L (98-107); Glucose 114 mg/dL (74-99); Magnesium 1.9 mg/dL (1.6-2.3); Non-African American GFR(MDRD) >60 (>60 ml/min/1.73 sqM); Potassium 4.5 mmol/L (3.5-5.1); Sodium 139 mmol/L (137-145)
[2017-03-08 07:46] LABS: INR 1.2 (<1.2); Partial Thromboplastin Time 25.5 sec (22.0-30.0); Prothrombin Time 12.2 sec (9.0-12.0)
[2017-03-08] MEDS ORDERED: IV FLUID CONTINUATION 1,000 ML IV ONE (08:38)
[2017-03-08] MEDS ORDERED: DEXAMETHASONE SOD PHOS (MDV) 100 MG/10 ML VIAL IVP ONE (08:51)
[2017-03-08] MEDS ORDERED: VANCOMYCIN TROUGH DUE 1 EACH MISC MISCELLANE ONE (09:00)
[2017-03-08] MEDS ORDERED: HEPARIN SODIUM,PORCINE 5,000 UNIT/ML 1 ML VIAL SQ ONE (10:26)
--- NOTE | 2017-03-08 10:28 | P.CON ---
Consult Note - . Consult date: 03/08/17 Assessment/Plan:: Please refer to the consult dictated yesterday while the patient was in the psychiatric unit. Patient's CAT scan was reviewed and does reveal a fluid collection traversing the upper abdominal wall that appears suspicious for abscess. We will proceed with incision and drainage of this fluid collection. We will try to drain the subfascial component as well. We will leave the wound open postoperatively. The risks were discussed with the patient in detail as previously described.
[2017-03-08] MEDS ORDERED: GLYCOPYRROLATE 0.2 MG/ML 2 ML VIAL ONE (10:45)
[2017-03-08] MEDS ORDERED: SUCCINYLCHOLINE CHLORIDE 100 MG/5 ML SYR IV ONE (10:45)
[2017-03-08] MEDS ORDERED: MIDAZOLAM 2 MG/2 ML VIAL ONE (10:45)
[2017-03-08] MEDS ORDERED: LIDOCAINE 1% INJ 10MG/ML (20 ML MDV) ONE (10:45)
[2017-03-08] MEDS ORDERED: ROCURONIUM BROMIDE 10 MG/ML 10 ML VIAL IV ONE (10:45)
[2017-03-08] MEDS ORDERED: PROPOFOL 10 MG/ML 20 ML VIAL IV ONE (10:45)
[2017-03-08] MEDS ORDERED: NEOSTIGMINE 1 MG/ML 10 ML VIAL ONE (10:45)
[2017-03-08] MEDS ORDERED: fentaNYL (PF) 50 MCG/ML 2 ML AMP ONE (10:45)
[2017-03-08] MEDS ORDERED: LACTATED RINGERS 1,000 ML IV ONE ×2 (11:11)
--- NOTE | 2017-03-08 11:52 | P.OP ---
Date of Procedure: 03/08/17 Procedure(s) Performed: PREOPERATIVE DIAGNOSIS: Abdominal wall fluid collection POSTOPERATIVE DIAGNOSIS: Abdominal wall and intra-abdominal abscess PROCEDURE: Incision and drainage abdominal wall and intra-abdominal abscess SURGEON: Johnny EBL: Minimal ANESTHESIA: General COMPLICATIONS: None OPERATIVE PROCEDURE: Patient was placed in the operating room on the table in the supine position. The patient was placed under general anesthesia. A vertical incision was made through the fluid collection in the upper abdomen. This incision was eventually lengthened for a total of approximately 6 cm. Entrance into a large subcutaneous abscess cavity was performed. The purulence was quite foul-smelling. His was evacuated and sent for cytology and cultures. The abdominal wall musculature was very indurated and partially necrosis as a result of the infection. There was a 1.5-2 cm opening in the midline and pus was seen emanating through that opening. With the tip of my finger I was able to bluntly enter an abscess cavity in the abdomen itself which corresponded to the perihepatic collection. This was evacuated as well. Some of the friable muscle was removed and sent for permanent sectioning. Using the suction- retail delivery driver 3 L of saline was utilized both in the perihepatic and abdominal wall abscess sites. No significant bleeding was identified. The wound was packed with a saline moistened Kerlix roll. The Kerlix was packed down below the fascial level. Outer dressings were applied. DISPOSITION: Stable to recovery room
[2017-03-08] MEDS: FAMOTIDINE 20 MG TAB PO SCH ×2 (12:23→21:40)
[2017-03-08] MEDS: LACTATED RINGERS 1,000 ML IV SCH (12:23)
[2017-03-08] MEDS: ACETAMINOPHEN TAB 325 MG TAB PO PRN (13:12)
--- NOTE | 2017-03-08 15:34 | P.PN ---
Subjective Progress Note Date: 03/08/17 Principal diagnosis: abdominal mass Patient is a 56-year-old male with a past medical history of asthma, GERD, schizophrenia who initially presented to the ER with [place] police department with court ordered psych evaluation. In the ER he was rather uncooperative with the evaluation. His initial vital signs showed a tachycardia with a heart rate of 115. His initial laboratory analysis demonstrated a leukocytosis with white blood cell count of 12.9, elevated platelets at 573, low sodium and 135, an elevated glucose at 121. He was medically cleared by the emergency department physician and admitted to the psychiatry unit. We were initially consult for medical management. When he was seen by my partner Dr. Barnett was found to have abdominal pain and a CT was ordered secondary to an abdominal mass being palpated. CT demonstrated possible hematoma versus abscess of the abdominal wall. Surgery evaluated the patient and determined it would be best to incise and drain this as they were concerned it was infectious. He therefore was transferred to the general medical floor for further care. He was started on IV fluids and IV vancomycin. He underwent I&D on the morning of 03/[address] Turner. Was felt that this was an abscess intraoperatively and cultures were sent. Patient seen and examined at bedside. He denies postsurgical nausea and vomiting. He denies chest pain, shortness of breath, lightheadedness. He states his abdominal pain is well-controlled currently. Objective - Vital Signs Vital signs: Vital Signs Temp 97.3 F L 03/08/17 11:42 Pulse 93 03/08/17 12:27 Resp 16 03/08/17 12:27 BP 143/84 03/08/17 12:27 Pulse Ox 98 03/08/17 12:27 Intake & Output 03/07/17 03/08/17 03/08/17 18:59 06:59 18:59 Intake Total 480 2049 Output Total 30 Balance 480 2019 Weight 84.368 kg Intake: IV 1800 Intake, IV Titration 250 Amount Vancomycin 1,500 mg In 250 Sodium Chloride 0.9% 250 ml @ 125 mls/hr IVPB Q8H [facility] Rx#:[id number] Oral 480 Output: Estimated Blood Loss 30 Other: Voiding Method Toilet # Voids 1 - Exam General: non toxic, no distress, appears at stated age Derm: Dressing over abdominal area, no rashes, no lesions Head: atraumatic, normocephalic, symmetric Eyes: EOMI, no lid lag, anicteric sclera ENT: no post nasal drip, no thrush Mouth: no lip lesion, mucus membranes moist Cardiovascular: S1S2 reg, no murmur, positive posterior tibial pulse bilateral, Lungs: CTA bilateral, no rhonchi, no rales , no accessory muscle use Abdominal: soft, nontender to palpation, no guarding, no appreciable organomegaly, dressing over abdominal area Ext: no gross muscle atrophy, no edema, no contractures Neuro: CN II-XI grossly intact, no focal neuro deficits Psych: Alert, oriented, flat affect - Labs CBC & Chem 7: 03/08/17 07:13 03/08/17 07:13 Labs: Abnormal Lab Results - Last 24 Hours (Table) 03/08/17 03/08/17 03/08/17 Range/Units 07:13 07:13 07:13 WBC 11.5 H (3.8-10.6) k/uL RBC 4.19 L (4.30-5.90) m/uL Hgb 12.4 L (13.0-17.5) gm/dL Plt Count 546 H (150-450) k/uL PT 12.2 H (9.0-12.0) sec INR 1.2 H (<1.2) Glucose 114 H (74-99) mg/dL Microbiology - Last 24 Hours (Table) 03/08/17 11:00 Anaerobic Culture - Preliminary Abdomen 03/08/17 11:00 Wound Culture - Preliminary Abdomen Assessment and Plan Plan: Abdominal abscess with sepsis s/p I and D -IV fluids - IV vancomycin -Surgery recs , Await blood culture , Await abdominal fluid culture Sepsis -Treatment as outlined above Mild intermittent asthma -As needed bronchodilators Schizophrenia -Psychiatry consultation Tobacco abuse -Smoking cessation -Nicotine replacement Mild aortic regurgitation -Following up with cardiology as an outpatient and being treated medically -Recent ANGELITO and 02/26/2017 GERD -PPI DVT prophylaxis: SCDs Discussed with: Patient Anticipated discharge: 48-[address]: likely will need to return to mental health A total of 35 minutes was spent on the care of this complex patient more than 50 % of the time was spent in counseling and care coordination.
[2017-03-09] MEDS: VANCOMYCIN 1,500 MG in SODIUM CHLORIDE 0.9% 250 ML IVPB SCH ×2 (02:41→10:23)
[2017-03-09 03:15] VITALS: RESP 16
--- NOTE | 2017-03-09 04:48 | P.CN ---
Psychiatric Consult - . Consult date: 03/08/17 Consult:: Allergies Allergy/AdvReac Type Severity Reaction Status Date / Time Penicillins Allergy Unknown Verified 03/06/17 16:15 Childhood Vital Signs Temp 97.6 F 03/09/17 01:10 Pulse 92 03/09/17 01:10 Resp 16 03/09/17 01:10 BP 123/73 03/09/17 01:10 Pulse Ox 96 03/09/17 01:10 Laboratory Last Values WBC 11.5 k/uL (3.8-10.6) H 03/08/17 07:13 RBC 4.19 m/uL (4.30-5.90) L 03/08/17 07:13 Hgb 12.4 gm/dL (13.0-17.5) L 03/08/17 07:13 Hct 39.8 % (39.0-53.0) 03/08/17 07:13 MCV 95.1 fL (80.0-100.0) 03/08/17 07:13 MCH 29.6 pg (25.0-35.0) 03/08/17 07:13 MCHC 31.2 g/dL (31.0-37.0) 03/08/17 07:13 RDW 13.6 % (11.5-15.5) 03/08/17 07:13 Plt Count 546 k/uL (150-450) H 03/08/17 07:13 PT 12.2 sec (9.0-12.0) H 03/08/17 07:13 INR 1.2 (<1.2) H 03/08/17 07:13 APTT 25.5 sec (22.0-30.0) 03/08/17 07:13 Sodium 139 mmol/L (137-145) 03/08/17 07:13 Potassium 4.5 mmol/L (3.5-5.1) 03/08/17 07:13 Chloride 105 mmol/L (98-107) 03/08/17 07:13 Carbon Dioxide 23 mmol/L (22-30) 03/08/17 07:13 Anion Gap 11 mmol/L 03/08/17 07:13 BUN 9 mg/dL (9-20) 03/08/17 07:13 Creatinine 0.79 mg/dL (0.66-1.25) 03/08/17 07:13 Est GFR (MDRD) Af Amer >60 (>60 ml/min/1.73 sqM) 03/08/17 07:13 Est GFR (MDRD) Non-Af >60 (>60 ml/min/1.73 sqM) 03/08/17 07:13 Glucose 114 mg/dL (74-99) H 03/08/17 07:13 Calcium 8.8 mg/dL (8.4-10.2) 03/08/17 07:13 Magnesium 1.9 mg/dL (1.6-2.3) 03/08/17 07:13 HPI: Patient is a 56 year old male who was medically cleared in ER, admitted to MHU, evaluated by Medicine who consulted who admitted patient for I/ D. During brief MHU stay patient received Risperdal Consta 50-mg IM on 2016 Patient's mass was identified as an abdominal wall and intra-abdominal abscess. Patient is now s/p I/D. He denies any pain. He reports he is sleeping "ok." At this time, patient denies SI/HI/AVH. PMH: Past Medical History Past Medical History: Asthma, GERD/Reflux Additional Past Medical History / Comment(s): Aortic regurg, Lexiscan stress test [facility] Jan, ANGELITO with thickend aortic valve 02/26/2017 Dr. Cruz suggested medical management. History of Any Multi-Drug Resistant Organisms: None Reported Past Surgical History: Tonsillectomy Additional Past Surgical History / Comment(s): cyst on neck Past Anesthesia/Blood Transfusion Reactions: No Reported Reaction Past Psychological History: Schizophrenia Smoking Status: Current every day smoker Past Alcohol Use History: None Reported Additional Past Alcohol Use History / Comment(s): 1/2 PPD FOR 10 YEARS Past Drug Use History: None Reported HOME MEDICATIONS: 3 Medication Instructions Recorded Confirmed Albuterol Inhaler [Ventolin Hfa 2 puff INHALATION RT-QID PRN 02/22/17 03/07/17 Inhaler] Ranitidine HCl [Zantac] 150 mg PO DAILY PRN 02/22/17 03/07/17 Acetaminophen Tab [Tylenol] 500 mg PO Q6H PRN 02/26/17 03/07/17 risperiDONE MICROSPHERES 50 mg IM Q14D 03/06/17 03/07/17 [RisperDAL CONSTA] ALLERGIES: 3 Allergy/AdvReac Type Severity Reaction Status Date / Time Penicillins Allergy Unknown Verified 03/07/17 19:30 Childhood STRENGTHS/WEAKNESSES: "perseverance," lack of social support MENTAL STATUS EXAM: Appearance: somnolent, appears older than stated age Behavior: psychomotor retardation, no abnormal movements, fair eye contact Attitude: cooperative Speech: normal rate, rhythm, fluency, articulation, volume soft, and prosody; primary language: Tunisian Mood: "fine" Affect: constricted Thought processes: concrete Thought content: patient does not: appears to be responding to internal stimuli at times, denies AVH, denies SI/HI Insight: poor Judgment: poor Cognitive: oriented to all 3 spheres, average intelligence Assessment and Plan (1) Schizophrenia Narrative/Plan: Patient received Risperdal Consta 50-mg IM on 03/06/2017, next injection is due on 03/20/2017 Status: Acute Plan: Pat Time with Patient: Greater than 30
[2017-03-09] MEDS: LACTATED RINGERS 1,000 ML IV SCH (05:38)
[2017-03-09 09:11] LABS: CH 30.1; CHCM 32.1; HCT 37.5 % (39.0-53.0); HDW 2.92; HGB 11.7 gm/dL (13.0-17.5); Hypochromasia Slight; MCH 29.3 pg (25.0-35.0); MCHC 31.2 g/dL (31.0-37.0); MCV 94.1 fL (80.0-100.0); RBC 3.98 m/uL (4.30-5.90); RDW 12.7 % (11.5-15.5); WBC 11.8 k/uL (3.8-10.6)
[2017-03-09 09:21] LABS: Anion Gap 11 mmol/L; Blood Urea Nitrogen 9 mg/dL (9-20); Carbon Dioxide 24 mmol/L (22-30); Chloride 107 mmol/L (98-107); Glucose 149 mg/dL (74-99); Non-African American GFR(MDRD) >60 (>60 ml/min/1.73 sqM); Sodium 142 mmol/L (137-145)
--- NOTE | 2017-03-09 09:34 | P.PN ---
Subjective Progress Note Date: 03/09/17 Principal diagnosis: abdominal mass Patient is a 56-year-old male with a past medical history of asthma, GERD, schizophrenia who initially presented to the ER with [place] police department with court ordered psych evaluation. In the ER he was rather uncooperative with the evaluation. His initial vital signs showed a tachycardia with a heart rate of 115. His initial laboratory analysis demonstrated a leukocytosis with white blood cell count of 12.9, elevated platelets at 573, low sodium and 135, an elevated glucose at 121. He was medically cleared by the emergency department physician and admitted to the psychiatry unit. We were initially consult for medical management. When he was seen by my partner Dr. Barnett was found to have abdominal pain and a CT was ordered secondary to an abdominal mass being palpated. CT demonstrated possible hematoma versus abscess of the abdominal wall. Surgery evaluated the patient and determined it would be best to incise and drain this as they were concerned it was infectious. He therefore was transferred to the general medical floor for further care. He was started on IV fluids and IV vancomycin. He underwent I&D on the morning of 03/[address] Turner. It was felt that this was an abscess intraoperatively and cultures were sent. He had immediate improvement in his abdominal pain after the incision and drainage. Patient seen and examined at bedside. He states his pain is resolved. He required minimal pain medications. He denies any nausea, vomiting, or diarrhea. He states he is feeling much improved. Objective - Vital Signs Vital signs: Vital Signs Temp 97.6 F 03/09/17 01:10 Pulse 92 03/09/17 01:10 Resp 16 03/09/17 01:10 BP 123/73 03/09/17 01:10 Pulse Ox 96 03/09/17 01:10 Intake & Output 03/08/17 03/09/17 03/09/17 18:59 06:59 18:59 Intake Total 2049 2099 Output Total 30 Balance 2019 2099 Intake: IV 1800 Intake, IV Titration 250 2100 Amount Sodium Chloride 0.9% 1, 1600 000 ml @ 100 mls/hr IV . Q10H SAUMYA Rx#:[id number] Vancomycin 1,500 mg In 250 500 Sodium Chloride 0.9% 250 ml @ 125 mls/hr IVPB Q8H SAUMYA Rx#:[id number] Output: Estimated Blood Loss 30 Other: Voiding Method Toilet # Voids 2 # Bowel Movements 0 - Exam General: non toxic, no distress, appears at stated age Derm: Dressing over abdominal area, no rashes, no lesions Head: atraumatic, normocephalic, symmetric Eyes: EOMI, no lid lag, anicteric sclera ENT: no post nasal drip, no thrush Mouth: no lip lesion, mucus membranes moist Cardiovascular: S1S2 reg, no murmur, positive posterior tibial pulse bilateral, Lungs: Decreased breath sounds bilateral, no rhonchi, no rales , no accessory muscle use Abdominal: soft, nontender to palpation, no guarding, no appreciable organomegaly, dressing over abdominal area Ext: no gross muscle atrophy, no edema, no contractures Neuro: CN II-XI grossly intact, no focal neuro deficits Psych: Alert, oriented, flat affect - Labs CBC & Chem 7: 03/09/17 08:56 03/09/17 08:56 Labs: Abnormal Lab Results - Last 24 Hours (Table) 03/09/17 03/09/17 Range/Units 08:56 08:56 WBC 11.8 H (3.8-10.6) k/uL RBC 3.98 L (4.30-5.90) m/uL Hgb 11.7 L (13.0-17.5) gm/dL Hct 37.5 L (39.0-53.0) % Plt Count 571 H (150-450) k/uL Glucose 149 H (74-99) mg/dL Microbiology - Last 24 Hours (Table) 03/08/17 11:00 Gram Stain - Preliminary Abdomen Wound Culture - Preliminary 03/08/17 11:00 Anaerobic Culture - Preliminary Abdomen Assessment and Plan Plan: Abdominal abscess with sepsis s/p I and D - IV fluids stopped - IV vancomycin - Surgery recs - Await blood culture - Await abdominal fluid culture Sepsis -Treatment as outlined above Mild intermittent asthma -As needed bronchodilators Schizophrenia -Psychiatry recs Tobacco abuse -Smoking cessation -Nicotine replacement Mild aortic regurgitation -Following up with cardiology as an outpatient and being treated medically -Recent ANGELITO and 02/26/2017 GERD -PPI DVT prophylaxis: lovenox Discussed with: Patient Anticipated discharge: 24-[address]: likely will need to return to mental health A total of 25 minutes was spent on the care of this complex patient more than 50 % of the time was spent in counseling and care coordination.
[2017-03-09] MEDS: FAMOTIDINE 20 MG TAB PO SCH ×2 (10:23→20:43)
--- NOTE | 2017-03-09 11:18 | P.PN ---
Progress Note - Text Progress Note Date: 03/09/17 The patient resting cough is better. He has minimal complaints of abdominal pain. On exam is lesser stable. His evidence soft. There is a wound dressing located in the upper abdomen. Status post I&D of abdominal wall abscess. Patient will have his local wound care performed today.
[2017-03-09] MEDS: SODIUM CHLORIDE 0.9% 1,000 ML IV SCH (12:12)
[2017-03-09] MEDS: ACETAMINOPHEN TAB 325 MG TAB PO PRN (13:20)
[2017-03-09] MEDS: HYDROcodone/APAP 5-325MG 1 EACH TAB PO PRN ×2 (13:20→20:43)
[2017-03-09] MEDS: VANCOMYCIN 1,250 MG in SODIUM CHLORIDE 0.9% 250 ML IVPB SCH (17:32)
[2017-03-09] MEDS: ENOXAPARIN 40 MG/0.4 ML SYRINGE SQ SCH (17:37)
[2017-03-10] MEDS: VANCOMYCIN 1,250 MG in SODIUM CHLORIDE 0.9% 250 ML IVPB SCH ×2 (02:53→09:48)
[2017-03-10 07:59] LABS: CHCM 32.7; HCT 38.7 % (39.0-53.0); HDW 2.72; HGB 12.2 gm/dL (13.0-17.5); MCH 29.8 pg (25.0-35.0); MCHC 31.4 g/dL (31.0-37.0); Mean Platelet Volume 8.1; RBC 4.07 m/uL (4.30-5.90); RDW 13.9 % (11.5-15.5); WBC 8.2 k/uL (3.8-10.6)
[2017-03-10 08:18] LABS: Anion Gap 11 mmol/L; Blood Urea Nitrogen 12 mg/dL (9-20); Calcium 9.1 mg/dL (8.4-10.2); Carbon Dioxide 24 mmol/L (22-30); Chloride 104 mmol/L (98-107); Glucose 92 mg/dL (74-99); Non-African American GFR(MDRD) >60 (>60 ml/min/1.73 sqM); Potassium 5.1 mmol/L (3.5-5.1); Sodium 139 mmol/L (137-145)
--- NOTE | 2017-03-10 09:29 | P.PN ---
Subjective Progress Note Date: 03/10/17 Principal diagnosis: abdominal mass Patient is a 56-year-old male with a past medical history of asthma, GERD, schizophrenia who initially presented to the ER with [place] police department with court ordered psych evaluation. In the ER he was rather uncooperative with the evaluation. His initial vital signs showed a tachycardia with a heart rate of 115. His initial laboratory analysis demonstrated a leukocytosis with white blood cell count of 12.9, elevated platelets at 573, low sodium and 135, an elevated glucose at 121. He was medically cleared by the emergency department physician and admitted to the psychiatry unit. We were initially consult for medical management. When he was seen by my partner Dr. Barnett was found to have abdominal pain and a CT was ordered secondary to an abdominal mass being palpated. CT demonstrated possible hematoma versus abscess of the abdominal wall. Surgery evaluated the patient and determined it would be best to incise and drain this as they were concerned it was infectious. He therefore was transferred to the general medical floor for further care. He was started on IV fluids and IV vancomycin. He underwent I&D on the morning of 03/[address] Turner. It was felt that this was an abscess intraoperatively and cultures were sent. He had immediate improvement in his abdominal pain after the incision and drainage. His abdominal cultures came back negative. Patient seen and examined at bedside. Pain is controlled, eating well, no nausea, vomiting, or diarrhea. Feeling much improved. Objective - Vital Signs Vital signs: Vital Signs Temp 97.2 F L 03/10/17 08:00 Pulse 94 03/10/17 08:00 Resp 16 03/10/17 08:00 BP 128/78 03/10/17 08:00 Pulse Ox 96 03/10/17 08:00 Intake & Output 03/09/17 03/10/17 03/10/17 18:59 06:59 18:59 Intake Total 1450 Output Total 600 Balance 850 Intake: Intake, IV Titration 1050 Amount Sodium Chloride 0.9% 1, 800 000 ml @ 100 mls/hr IV . Q10H SAUMYA Rx#:[id number] Vancomycin 1,250 mg In 250 Sodium Chloride 0.9% 250 ml @ 125 mls/hr IVPB Q8H SAUMYA Rx#:[id number] Oral 400 Output: Urine 600 Other: Voiding Method Toilet # Voids 3 4 - Exam General: non toxic, no distress, appears at stated age Derm: Dressing over abdominal area, no rashes, no lesions Head: atraumatic, normocephalic, symmetric Eyes: EOMI, no lid lag, anicteric sclera ENT: no post nasal drip, no thrush Mouth: no lip lesion, mucus membranes moist Cardiovascular: S1S2 reg, no murmur, positive posterior tibial pulse bilateral, Lungs: Decreased breath sounds bilateral, no rhonchi, no rales , no accessory muscle use Abdominal: soft, nontender to palpation, no guarding, no appreciable organomegaly, dressing over abdominal area Ext: no gross muscle atrophy, no edema, no contractures Neuro: CN II-XI grossly intact, no focal neuro deficits Psych: Alert, oriented, flat affect - Labs CBC & Chem 7: 03/10/17 06:54 03/10/17 06:54 Labs: Abnormal Lab Results - Last 24 Hours (Table) 03/10/17 Range/Units 06:54 RBC 4.07 L (4.30-5.90) m/uL Hgb 12.2 L (13.0-17.5) gm/dL Hct 38.7 L (39.0-53.0) % Plt Count 602 H (150-450) k/uL Microbiology - Last 24 Hours (Table) 03/08/17 11:00 Gram Stain - Preliminary Abdomen Wound Culture - Preliminary Assessment and Plan Plan: Abdominal abscess with sepsis s/p I and D - culture is negative, will stop IV vancomycin and start Bactrim to complete 5 days of therapy. Anaerobic wound cultures currently pending. - IV fluids stopped - surgery recs Mild intermittent asthma -As needed bronchodilators Schizophrenia -Psychiatry recs: will re-eval patient on 03/11 Tobacco abuse -Smoking cessation -Nicotine replacement Mild aortic regurgitation -Following up with cardiology as an outpatient and being treated medically -Recent ANGELITO and 02/26/2017 GERD -PPI Sepsis, resolved DVT prophylaxis: lovenox Discussed with: Patient Anticipated discharge: [address]: likely will need to return to mental health vs home A total of 25 minutes was spent on the care of this complex patient more than 50 % of the time was spent in counseling and care coordination.
[2017-03-10] MEDS: ENOXAPARIN 40 MG/0.4 ML SYRINGE SQ SCH (10:07)
[2017-03-10] MEDS: FAMOTIDINE 20 MG TAB PO SCH ×3 (10:07→20:58)
--- NOTE | 2017-03-10 11:14 | P.PN ---
Progress Note - Text Progress Note Date: 03/10/17 The patient is resting, please bed. He is just had his dressing change. On exam his vital signs are stable. His abdomen soft. Continue local wound care. Patient was discharged home per medicine.
[2017-03-10] MEDS: LACTATED RINGERS 1,000 ML IV SCH (14:16)
[2017-03-10] MEDS: HYDROcodone/APAP 5-325MG 1 EACH TAB PO PRN ×2 (15:32→20:55)
[2017-03-10] MEDS: ACETAMINOPHEN TAB 325 MG TAB PO PRN (16:57)
[2017-03-10] MEDS: SULFAMETHOX-TMP 800-160MG 1 EACH TAB PO SCH (20:55)
[2017-03-11 07:24] VITALS: TEMP 97.4
[2017-03-11] MEDS: SULFAMETHOX-TMP 800-160MG 1 EACH TAB PO SCH (08:56)
[2017-03-11] MEDS: FAMOTIDINE 20 MG TAB PO SCH (08:56)
[2017-03-11] MEDS: ENOXAPARIN 40 MG/0.4 ML SYRINGE SQ SCH (08:56)
[2017-03-11 08:59] LABS: CH 29.9; CHCM 31.9; HCT 41.8 % (39.0-53.0); HDW 2.86; HGB 13.2 gm/dL (13.0-17.5); Hypochromasia Slight; MCH 29.6 pg (25.0-35.0); MCHC 31.6 g/dL (31.0-37.0); MCV 93.8 fL (80.0-100.0); Mean Platelet Volume 7.2; RBC 4.46 m/uL (4.30-5.90); RDW 12.9 % (11.5-15.5); WBC 7.4 k/uL (3.8-10.6)
[2017-03-11] MEDS ORDERED: VANCOMYCIN TROUGH DUE 1 EACH MISC MISCELLANE ONE (09:00)
[2017-03-11] MEDS: HYDROcodone/APAP 5-325MG 1 EACH TAB PO PRN (09:02)
[2017-03-11 09:03] LABS: ALT 76 U/L (21-72); AST 33 U/L (17-59); Alkaline Phosphatase 107 U/L (38-126); Anion Gap 11 mmol/L; Blood Urea Nitrogen 14 mg/dL (9-20); Calcium 9.5 mg/dL (8.4-10.2); Carbon Dioxide 28 mmol/L (22-30); Chloride 100 mmol/L (98-107); Glucose 151 mg/dL (74-99); Non-African American GFR(MDRD) >60 (>60 ml/min/1.73 sqM); Potassium 5.1 mmol/L (3.5-5.1); Sodium 139 mmol/L (137-145); Total Bilirubin 0.2 mg/dL (0.2-1.3); Total Protein 6.6 g/dL (6.3-8.2)
--- NOTE | 2017-03-11 13:25 | P.PN ---
Progress Note - Text Progress Note Date: 03/11/17 Vital Signs: Temp 97.4 F L 03/11/17 07:00 Pulse 88 03/11/17 07:00 Resp 16 03/11/17 07:00 BP 117/72 03/11/17 07:00 Pulse Ox 96 03/11/17 07:00 Interval History: Patient interviewed at bedside. Patient is resting comfortably. He denies any new complaints, pain is controlled, tolerating Risperdal Consta without any adverse or side effects. Patient informed he does not meet criteria for involuntary admission, and his discharge disposition will be decided by his Primary team. Patient is a bit more interactive in this interview and asks several questions about his abdominal mass, abscesses, healing time. Patient encouraged to relay such questions to his Surgery and Medicine teams to avoid any confusion about prognosis and what follow up care patient will need to do post discharge. At this time, patient denies SI/HI/AVH. Mental Status Exam: Appearance: alert, hygiene adequate , appears older than chronological age Behavior: psychomotor agitation+, abnormal movements+, fair eye contact Attitude: cooperative Speech: normal rate, rhythm, fluency, articulation, volume, and prosody; primary language: German Mood: euthymic Affect: congruent, reactive Thought processes: linear Thought content: patient does not appear to be responding to internal stimuli; patient denies auditory and visual hallucinations, no delusions appreciated Insight: fair Judgment: fair Cognitive: oriented to all 3 spheres, average intelligence Recommendations: Patient received Risperdal Consta 50-mg IM on 03/06/2017, next injection is due on 03/20/2017 Patient scheduled to follow up with outpatient psychiatry at [facility] on 2016 Next injection will be given on day of appointment noted above There is no psychiatric contraindication for discharge
[2017-03-11 15:08] VITALS: BP 115/82; PULSE 101
--- NOTE | 2017-03-11 15:13 | P.PN ---
<Ade Rich - Last Filed: 03/11/17 15:08> Subjective Progress Note Date: 03/11/17 56-year-old seen and examined at bedside. Patient sitting up in bed. Patient is postop incision and drainage of an abdominal wall intra-abdominal abscess done on March 08. The wound has been packed with saline moistened Kerlix. Labs were reviewed noted Objective - Vital Signs Vital signs: Vital Signs Temp 97.4 F L 03/11/17 07:00 Pulse 101 H 03/11/17 15:07 Resp 16 03/11/17 15:07 BP 115/82 03/11/17 15:07 Pulse Ox 97 03/11/17 15:07 Intake & Output 03/10/17 03/11/17 03/11/17 18:59 06:59 18:59 Intake Total 250 1440 Balance 250 1440 Intake: Intake, IV Titration 250 Amount Vancomycin 1,250 mg In 250 Sodium Chloride 0.9% 250 ml @ 125 mls/hr IVPB Q8H SAUMYA Rx#:[id number] Oral 1440 Other: Voiding Method Toilet # Voids 2 300 - Exam Physical exam 56-year-old male sitting up in bed appears in no acute distress. States is anxious to go home Lungs essentially clear adequate air movement on room air Heart S1-S2 audible regular Abdomen abdominal dressing removed no redness noted around the site packing noted no odor noted soft not distended nontender Extremities no edema noted - Labs CBC & Chem 7: 03/11/17 07:59 03/11/17 07:59 Labs: Abnormal Lab Results - Last 24 Hours (Table) 03/11/17 03/11/17 Range/Units 07:59 07:59 Plt Count 551 H (150-450) k/uL Glucose 151 H (74-99) mg/dL ALT 76 H (21-72) U/L Albumin 3.4 L (3.5-5.0) g/dL Microbiology - Last 24 Hours (Table) 03/08/17 11:00 Gram Stain - Final Abdomen Wound Culture - Final Assessment and Plan Plan: Impression Status post incision and drainage of abdominal abscess on March 08 with negative wound culture Schizophrenia Esophageal reflux disease Plan From a surgical perspective patient is felt to be appropriate to be discharged defer to the timing of the discharge to medicine service Home care to participate time of discharge for wound care Packed the wound with saline moistened Kerlix covered with a 4 x 4 Follow-up in the outpatient setting with Dr. Turner The above impression and plan of care have been discussed and directed by signing physician. Ade Rich nurse practitioner acting as scribe for signing physician. <Jovon Turner - Last Filed: 03/11/17 17:17> Objective - Vital Signs Vital signs: Vital Signs Temp 97.4 F L 03/11/17 07:00 Pulse 101 H 03/11/17 15:07 Resp 16 03/11/17 15:07 BP 115/82 03/11/17 15:07 Pulse Ox 97 03/11/17 15:07 Intake & Output 03/10/17 03/11/17 03/11/17 18:59 06:59 18:59 Intake Total 250 1440 240 Balance 250 1440 240 Intake: Intake, IV Titration 250 Amount Vancomycin 1,250 mg In 250 Sodium Chloride 0.9% 250 ml @ 125 mls/hr IVPB Q8H SAUMYA Rx#:[id number] Oral 1440 240 Other: Voiding Method Toilet # Voids 2 300 - Labs CBC & Chem 7: 03/11/17 07:59 03/11/17 07:59 Labs: Abnormal Lab Results - Last 24 Hours (Table) 03/11/17 03/11/17 Range/Units 07:59 07:59 Plt Count 551 H (150-450) k/uL Glucose 151 H (74-99) mg/dL ALT 76 H (21-72) U/L Albumin 3.4 L (3.5-5.0) g/dL Assessment and Plan Plan: As above. Patient was discharged prior to my evaluation. Outpatient follow-up is arranged.
--- NOTE | 2017-03-11 15:43 | P.DS ---
Providers Date of admission: 03/07/17 17:30 Expected date of discharge: 03/11/17 Attending physician: Gina Celeste DO Consults: 03/07/17 18:01 Consult Physician Routine Consulting Provider: Jovon Turner Consult Reason/Comments: abdominal mass Do you want consulting provider notified?: Yes, Notify in am 03/07/17 18:03 Consult Physician Routine Consulting Provider: Ganesh Huang Consult Reason/Comments: psychosis Do you want consulting provider notified?: Yes, Notify in am Primary care physician: Stated None Hospital Course: 56 year old male with PMHx of asthma, GERD, schizophrenia. presented to the ED with a court order for psych evaluation. Patient was later found to have abd pain and CT of the abd revealed an abd wall mass, surgery consulted who performed I and D, and started on empiric ABx, cultures later were negative, await anerobic cultures. patient tolerated procedure well. Patient seen POD#3 , denies any fever, chills, nausea , vomiting, diarrhea, abd pain , chest pain or SOB. he is eager to go home. he was evaluated by psychiatry who started him on antipsychotic regimen and scheduled him for OP follow up. He was cleared by psychiatry to discharge home when medically stable. He denies any suicidal or homicidal ideation. General: alert oriented to place , time and person, pleasaant conversant chest: CTA . no wheezes, or rales CVS: normal S1, S2, RRR, no MGR abd: soft lax, no tenderness to palpation, surgical site with surgical dressing , no induration, no tenderness, surgical dressing clean, dry and intact. Extremities, no leg edema bilaterally, no tenderness to palpation of the calf muscles bilaterally patient will be discharged home, with homecare service for wound care follow up OP with psychiatry and general surgery 35 minutes spent in this patient discharge, more than 50% of the time spent with counseling and coordinating care, case discussed with Dr. Huang from psychiatry Procedures: surgical I and D of abd wall abscess Patient Condition at Discharge: Stable Plan - Discharge Summary New Discharge Prescriptions: New risperiDONE MICROSPHERES [RisperDAL CONSTA] 50 mg IM Q14D #1 syr Sulfamethox-Tmp 800-160Mg [Bactrim DS 800-160 mg] 1 each PO BID #14 tab HYDROcodone/APAP 5-325MG [[place] 5-325] 1 each PO Q4HR PRN #24 tab PRN Reason: Moderate Pain Continue Ranitidine HCl [Zantac] 150 mg PO DAILY PRN PRN Reason: Indigestion Albuterol Inhaler [Ventolin Hfa Inhaler] 2 puff INHALATION RT-QID PRN #1 PRN Reason: Shortness Of Breath Discontinued Acetaminophen Tab [Tylenol] 500 mg PO Q6H PRN PRN Reason: Pain risperiDONE MICROSPHERES [RisperDAL CONSTA] 50 mg IM Q14D Discharge Medication List Ranitidine HCl [Zantac] 150 mg PO DAILY PRN 02/22/17 [History] Albuterol Inhaler [Ventolin Hfa Inhaler] 2 puff INHALATION RT-QID PRN #1 [Rx] HYDROcodone/APAP 5-325MG [[place] 5-325] 1 each PO Q4HR PRN #24 tab 03/11/17 [Rx] Sulfamethox-Tmp 800-160Mg [Bactrim DS 800-160 mg] 1 each PO BID #14 tab [Rx] risperiDONE MICROSPHERES [RisperDAL CONSTA] 50 mg IM Q14D #1 syr 03/11/17 [Rx] Follow up Appointment(s)/Referral(s): [facility] [Outside] - 03/18/17 9:30 am (03.18.17 at 09:[address] Aranda 03.19.17 at 3:00 pm with Jovon Garcia MD [Medical Doctor] - 03/14/17 [facility], [NON-STAFF] - Patient Instructions/Handouts: Abscess (GEN) Activity/Diet/Wound Care/Special Instructions: RISPERDAL CONSTA 50-MG IM [id number] FAXED TO [facility], PATIENT WILL GET INJECTION AT NEXT APPOINTMENT ON 03/18/2017 Care Plan Goals (MU): Daily wound care pack with saline moistened Kerlix cover with 4 x 4 Discharge Disposition: HOME WITH HOME HEALTH SERVICES
== END 2017-03-11 16:15 | disposition home health service (06) | DRG 854 ==
LOC: 3SUR 17:30
PROVIDERS: ADMIT Internal Medicine; ATTEND Internal Medicine
PROC: 0KBK0ZZ Excision of Right Abdomen Muscle, Open Approach (ICD-10-PCS; principal; 2017-03-07)
PROC: 0KBL0ZZ Excision of Left Abdomen Muscle, Open Approach (ICD-10-PCS; principal; 2017-03-07)
PROC: 0W9F0ZZ Drainage of Abdominal Wall, Open Approach (ICD-10-PCS; principal; 2017-03-07)
DX: A41.9 Sepsis, unspecified organism (principal); L02.211 Cutaneous abscess of abdominal wall; F20.9 Schizophrenia, unspecified; F17.200 Nicotine dependence, unspecified, uncomplicated; J45.20 Mild intermittent asthma, uncomplicated; K21.9 Gastro-esophageal reflux disease without esophagitis; I35.1 Nonrheumatic aortic (valve) insufficiency; Z88.0 Allergy status to penicillin; Z79.899 Other long term (current) drug therapy
CPT/HCPCS: 80048; 80053; 80202; 83735; 85027; 85610; 85730; 87070; 87075; 87205; 88173; 88304; 88305; 88313; 93005

== ENCOUNTER 2017-11-06 13:36 | Inpatient (IN) | payer MEDICARE, MEDICAID ==
--- NOTE | 2017-11-06 14:19 | ED ---
General Adult HPI - General Chief complaint: Psychiatric Symptoms Stated complaint: EPS eval Time Seen by Provider: 11/06/17 13:40 Source: patient, RN notes reviewed Mode of arrival: ambulatory Limitations: no limitations - History of Present Illness Initial comments: This is a 57-year-old male presents emergency Department stating he's been feeling depressed for about the last 2 weeks he got to a point today where he was so depressed he thought he needed to be in the hospital and admitted to the psych floor. Patient states he is not suicidal or homicidal. Patient denies hearing any voices or seeing any abnormalities. Patient states he just feels more depressed about his life and he feels as though is getting worse. Patient also states he is quite a few racing thoughts and is unable to sleep. Patient states those racing thoughts seem to come and go more frequently recently. Patient denies any physical complaints today. Patient denies headache patient denies numbness weakness. Patient denies chest pain palpitations difficulty breathing or shortness of breath. Patient denies abdominal pain patient denies nausea vomiting diarrhea. - Related Data Home Medications Medication Instructions Recorded Confirmed Levothyroxine Sodium [Synthroid] 50 mcg PO DAILY 11/06/17 11/06/17 Metoprolol Tartrate [Lopressor] 25 mg PO BID 11/06/17 11/06/17 Previous Rx's Medication Instructions Recorded risperiDONE MICROSPHERES 50 mg IM Q14D #1 syr 03/11/17 [RisperDAL CONSTA] Allergies Allergy/AdvReac Type Severity Reaction Status Date / Time Penicillins Allergy Unknown Verified 11/06/17 13:59 Childhood Review of Systems ROS Statement: Those systems with pertinent positive or pertinent negative responses have been documented in the HPI. ROS Other: All systems not noted in ROS Statement are negative. Past Medical History Past Medical History: Asthma, GERD/Reflux Additional Past Medical History / Comment(s): Aortic regurg, Lexiscan stress test noraml Jan, ANGELITO with thickend aortic valve 02/26/2017 Dr. Cruz suggested medical management. History of Any Multi-Drug Resistant Organisms: None Reported Past Surgical History: Tonsillectomy Additional Past Surgical History / Comment(s): cyst on neck,wound to abdomen Past Anesthesia/Blood Transfusion Reactions: No Reported Reaction Past Psychological History: Schizophrenia Smoking Status: Current every day smoker Past Alcohol Use History: None Reported Past Drug Use History: None Reported - Past Family History Mother Family Medical History: Myocardial Infarction ([place]) Father Family Medical History: [place]ocardial Infarction ([place]) Brother(s) Family Medical History: Myocardial Infarction ([place]) General Exam - General Exam Comments Initial Comments: GENERAL: Patient is well-developed and well-nourished. Patient is nontoxic and well- hydrated and is in no acute distress. ENT: Neck is soft and supple. No significant lymphadenopathy is noted. Oropharynx is clear. Moist mucous membranes. Neck has full range of motion without eliciting any pain. EYES: The sclera were anicteric and conjunctiva were pink and moist. Extraocular movements were intact and pupils were equal round and reactive to light. Eyelids were unremarkable. PULMONARY: Unlabored respirations. Good breath sounds bilaterally. No audible rales rhonchi or wheezing was noted. CARDIOVASCULAR: There is a regular rate and rhythm without any murmurs gallops or rubs. ABDOMEN: Soft and nontender with normal bowel sounds. No palpable organomegaly was noted. There is no palpable pulsatile mass. SKIN: Skin is clear with no lesions or rashes and otherwise unremarkable. NEUROLOGIC: Patient is alert and oriented x3. Cranial nerves II through XII are grossly intact. Motor and sensory are also intact. Normal speech, volume and content. Symmetrical smile. MUSCULOSKELETAL: Normal extremities with adequate strength and full range of motion. PSYCHIATRIC: Patient states he is very depressed however she is smiling throughout the interview and he does not give any specifics. Patient denies suicidal or homicidal ideations. Limitations: no limitations Course Vital Signs 11/06/17 13:41 Temperature 98.6 F Pulse Rate 108 H Respiratory 18 Rate Blood Pressure 129/82 O2 Sat by Pulse 97 Oximetry Medical Decision Making - Medical Decision Making EPS came down and evaluated the patient and determined the patient needed to be admitted Disposition Clinical Impression: Depression Disposition: ADMITTED IP TO THIS HOSP Referrals: Pooja Padilla MD [Primary Care Provider] - 1-2 days Time of Disposition: 16:07
[2017-11-06 17:15] VITALS: BMI 20.5
[2017-11-06] MEDS ORDERED: ACETAMINOPHEN TAB 325 MG TAB PO PRN (18:19)
[2017-11-06] MEDS ORDERED: MAG HYDROX/AL HYDROX/SIMETH 30 ML CUP PO PRN (18:19)
[2017-11-06] MEDS ORDERED: MAGNESIUM HYDROXIDE 2,400 MG/10 ML CUP PO PRN (18:19)
[2017-11-06 20:35] LABS: Glucose,Whole Blood 122 mg/dL (75-99)
[2017-11-07 06:26] LABS: Glucose,Whole Blood 102 mg/dL (75-99)
[2017-11-07] MEDS ORDERED: NICOTINE 14MG/24HR PATCH TRANSDERM SCH (09:00)
[2017-11-07 09:25] LABS: Basophils % (A) 0 %; Eosinophils # (A) 0.1 k/uL (0-0.7); Eosinophils % (A) 2 %; HCT 47.4 % (39.0-53.0); HGB 16.1 gm/dL (13.0-17.5); Lymphocytes # (A) 1.2 k/uL (1.0-4.8); Lymphocytes % (A) 22 %; MCH 31.9 pg (25.0-35.0); MCV 93.7 fL (80.0-100.0); Mean Platelet Volume 7.3; Monocytes # (A) 0.3 k/uL (0-1.0); Monocytes % (A) 6 %; Neutrophils # (A) 3.6 k/uL (1.3-7.7); Neutrophils % (A) 69 %; Platelet Count 236 k/uL (150-450); RBC 5.06 m/uL (4.30-5.90); WBC 5.3 k/uL (3.8-10.6)
[2017-11-07 09:50] LABS: ALT 31 U/L (21-72); AST 22 U/L (17-59); Albumin 3.8 g/dL (3.5-5.0); Alkaline Phosphatase 56 U/L (38-126); Anion Gap 10 mmol/L; Blood Urea Nitrogen 13 mg/dL (9-20); Calcium 9.3 mg/dL (8.4-10.2); Carbon Dioxide 29 mmol/L (22-30); Chloride 107 mmol/L (98-107); Cholesterol 167 mg/dL (<200); Glucose 73 mg/dL (74-99); HDL Cholesterol 45 mg/dL (40-60); LDL Cholesterol,Calculated 103 mg/dL (0-99); Potassium 4.7 mmol/L (3.5-5.1); Sodium 146 mmol/L (137-145); Total Bilirubin 0.5 mg/dL (0.2-1.3); Triglycerides 93 mg/dL (<150)
--- NOTE | 2017-11-07 10:35 | P.HP ---
Psychiatric H&P - . H&P Date: 11/07/17 History & Physical: Allergies Allergy/AdvReac Type Severity Reaction Status Date / Time Penicillins Allergy Unknown Verified 11/06/17 17:16 Childhood Vital Signs Temp 98.2 F 11/07/17 06:24 Pulse 89 11/07/17 06:24 Resp 16 11/07/17 06:24 BP 124/73 11/07/17 06:24 Pulse Ox 98 11/06/17 17:00 Intake & Output 11/06/17 11/07/17 11/07/17 18:59 06:59 18:59 Weight 66.735 kg Laboratory Last Values WBC 5.3 k/uL (3.8-10.6) 11/07/17 09:10 RBC 5.06 m/uL (4.30-5.90) 11/07/17 09:10 Hgb 16.1 gm/dL (13.0-17.5) 11/07/17 09:10 Hct 47.4 % (39.0-53.0) 11/07/17 09:10 MCV 93.7 fL (80.0-100.0) 11/07/17 09:10 MCH 31.9 pg (25.0-35.0) 11/07/17 09:10 MCHC 34.0 g/dL (31.0-37.0) 11/07/17 09:10 RDW 13.0 % (11.5-15.5) 11/07/17 09:10 Plt Count 236 k/uL (150-450) 11/07/17 09:10 Neutrophils % 69 % 11/07/17 09:10 Lymphocytes % 22 % 11/07/17 09:10 Monocytes % 6 % 11/07/17 09:10 Eosinophils % 2 % 11/07/17 09:10 Basophils % 0 % 11/07/17 09:10 Neutrophils # 3.6 k/uL (1.3-7.7) 11/07/17 09:10 Lymphocytes # 1.2 k/uL (1.0-4.8) 11/07/17 09:10 Monocytes # 0.3 k/uL (0-1.0) 11/07/17 09:10 Eosinophils # 0.1 k/uL (0-0.7) 06/14/18 09:10 Basophils # 0.0 k/uL (0-0.2) 11/07/17 09:10 POC Glucose (mg/dL) 102 mg/dL (75-99) H 11/07/17 06:21 POC Glu Purchasing Engineer ID Quin Rondon 11/07/17 06:21 11/07/17 10:24 Identification: Vinicius Lara is a 57 years old single white male living in [facility]. He was admitted to [facility] on 2017 on an involuntary application reporting that his depression is getting worse. History of present illness: Patient reports that his depression has been worse for the last 2-3 weeks has been sleeping 16-18 hours a day and not attending to basic needs. Patient is not a good or reliable historian. He also said he has schizophrenia and since he was in his 30s. But he denies hearing voices, delusional thinking etc. he denies manic episodes. He denies suicide and homicide thoughts. 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 He denies having any temper issues. Previous psychiatric history/drug and alcohol abuse: He was in psychiatric hospitals about 2 or 3 times. He was going to [facility] but he stopped going there more than 6 months ago. He was on Risperdal Consta 50 mg IM every 2 weeks. But he did not have it for more than 6 months. He denies abusing drugs and alcohol. Previous medical history: He is ALLERGIC to penicillin. He denies any physical problems. But his record indicates he has COPD and GERD. He is not taking any medication for these. He said he had abdominal surgery about 9 months ago. Social history: He had 2 years of college and learned accounting. He did not have any issues in learning or discipline when he was in middle and high school. He said he was laid back and easy-going, shy and minded his own business. He was in October and no other extracurricular activities. He was raised well by his parents he was never abused. He is disabled and is on SSID. He has Medicare and Medicaid. His last job was in 2015 when he had worked at [employer] for more than one year. 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 He was not in the service. He is Christianity by yarsanism and goes to gnosticism at times. He is heterosexual and has a boyfriend who lives with him. He denies any pending legal issues. Mental status examination: This is a white ambulatory male who looks rather unkempt. He has been she untrimmed mancera and mustache. His hair is not combed. He has very poor dental hygiene. He does not show psychomotor agitation or retardation. His speech is spontaneous, short and goal directed. His mood appears to be cheerful and rather silly. His affect is inappropriate and he smiles/giggles inappropriately. He said today is 11/06/2017. He is able to recall 3 out of 3 items after 5 minutes. He is able to name only the last 2 presidents when he was asked to name the last 4. He is able to spell house correctly and with some difficulty able to spell it backwards also. He is able to say 8+7 is 15 and 87 is 56 without much difficulty. His insight appears to be adequate and judgment is impaired as evidenced by noncompliance with treatment for more than 6 months. Diagnostic impression: Schizophrenia F 20.9. ALLERGY to penicillin. History of COPD and GERD. Treatment plan: He will have physical examination and psychosocial evaluation. He will receive milieu therapy group therapy individual therapy occupational therapy recreational therapy and medication education. He agreed to continue Risperdal Consta 50 mg IM every 2 weeks. Discharge with outpatient follow-up. Treatment goals: He will continue to be free of suicide and homicide thoughts. He will learn better coping skills. He will attend to basic needs. He will improve personal hygiene. Estimated length of stay: 5-10 days.
[2017-11-07 12:37] LABS: Glucose,Whole Blood 98 mg/dL (75-99)
--- NOTE | 2017-11-07 17:05 | P.CONS ---
History of Present Illness - Reason for Consult Hypothyroidism, medical clearance. - History of Present Illness Patient is admitted for schizophrenia. Patient denied any fever chills nausea vomiting abdominal pain. Patient is a history of hypertension. Blood pressure is fairly well controlled at this time. Review of Systems REVIEW OF SYSTEMS: CONSTITUTIONAL: No fever, no malaise, no fatigue. HEENT: No recent visual problems or hearing problems. Denied any sore throat. CARDIOVASCULAR: No chest pain, orthopnea, PND, no palpitations, no syncope. PULMONARY: No shortness of breath, no cough, no hemoptysis. GASTROINTESTINAL: No diarrhea, no nausea, no vomiting, no abdominal pain. Normoactive bowel sounds. NEUROLOGICAL: No headaches, no weakness, no numbness. HEMATOLOGICAL: Denies any bleeding or petechiae. GENITOURINARY: Denies any burning micturition, frequency, or urgency. MUSCULOSKELETAL/RHEUMATOLOGICAL: Denies any joint pain, swelling, or any muscle pain. ENDOCRINE: Denies any polyuria or polydipsia. The rest of the 14-point review of systems is negative. Past Medical History Past Medical History: Asthma, GERD/Reflux Additional Past Medical History / Comment(s): Aortic regurg, Lexiscan stress test noraml Jan, ANGELITO with thickend aortic valve 02/26/2017 Dr. Cruz suggested medical management. History of Any Multi-Drug Resistant Organisms: None Reported Past Surgical History: Tonsillectomy Additional Past Surgical History / Comment(s): cyst on neck,wound to abdomen Past Anesthesia/Blood Transfusion Reactions: No Reported Reaction Past Psychological History: Schizophrenia Smoking Status: Current every day smoker Past Alcohol Use History: None Reported Additional Past Alcohol Use History / Comment(s): 1/2 PPD FOR 10 YEARS Past Drug Use History: None Reported - Past Family History Mother Family Medical History: Myocardial Infarction ([place]) Father Family Medical History: Myocardial Infarction ([place]) Brother(s) Family Medical History: Myocardial Infarction ([place]) Medications and Allergies Home Medications Medication Instructions Recorded Confirmed Type risperiDONE MICROSPHERES 50 mg IM Q14D #1 syr 03/11/17 11/06/17 Rx [RisperDAL CONSTA] Levothyroxine Sodium [Synthroid] 50 mcg PO DAILY 11/06/17 11/06/17 History Metoprolol Tartrate [Lopressor] 25 mg PO BID 11/06/17 11/06/17 History Allergies Allergy/AdvReac Type Severity Reaction Status Date / Time Penicillins Allergy Unknown Verified 11/06/17 17:16 Childhood Physical Exam Vitals: Vital Signs Temp Pulse Resp BP 11/07/17 06:24 98.2 F 89 16 124/73 PHYSICAL EXAMINATION: GENERAL: The patient is alert and oriented x3, not in any acute distress. Well developed, well nourished. HEENT: Pupils are round and equally reacting to light. EOMI. No scleral icterus. No conjunctival pallor. Normocephalic, atraumatic. No pharyngeal erythema. No thyromegaly. CARDIOVASCULAR: S1 and S2 present. No murmurs, rubs, or gallops. PULMONARY: Chest is clear to auscultation, no wheezing or crackles. ABDOMEN: Soft, nontender, nondistended, normoactive bowel sounds. No palpable organomegaly. MUSCULOSKELETAL: No joint swelling or deformity. EXTREMITIES: No cyanosis, clubbing, or pedal edema. NEUROLOGICAL: Gross neurological examination did not reveal any focal deficits. SKIN: No rashes. Results CBC & Chem 7: 11/07/17 09:10 11/07/17 09:10 Labs: Abnormal Lab Results - Last 24 Hours (Table) 11/06/17 11/07/17 11/07/17 Range/Units 20:31 06:21 09:10 Sodium 146 H (137-145) mmol/L Glucose 73 L (74-99) mg/dL POC Glucose (mg/dL) 122 H 102 H (75-99) mg/dL Total Protein 6.0 L (6.3-8.2) g/dL LDL Cholesterol, Calc 103 H (0-99) mg/dL Assessment and Plan Plan: -Hyperthyroidism continue with the his home dose of levothyroxine and TSH is within normal limits -Hypertension continue Lopressor well-controlled blood pressure at this time -Schizophrenia management as per primary service Thank you for letting me participate in this patient's care, we'll sign off at this time please call us back if needed.
[2017-11-07 17:09] LABS: Appearance,Urine Clear (Clear); Bilirubin,Urine Negative (Negative); Blood,Urine Negative (Negative); Color,Urine Light Yellow; Glucose,Urine (UA) Negative (Negative); Ketones,Urine Negative (Negative); Leukocyte Esterase,Urine Negative (Negative); Nitrite,Urine Negative (Negative); PH, Urine 6.5 (5.0-8.0); Protein,Urine Negative (Negative); Specific Gravity,Urine 1.004 (1.001-1.035); Urobilinogen,Urine <2.0 mg/dL (<2.0)
[2017-11-07 17:11] LABS: Hemoglobin A1C 5.7 % (4.0-6.0)
[2017-11-07 17:22] LABS: Amphetamine Screen,Urine Not Detected (NotDetected); Barbiturate Screen,Urine Not Detected (NotDetected); Benzodiazepines Screen,Urine Not Detected (NotDetected); Cocaine Screen,Urine Not Detected (NotDetected); Methadone Screen, Urine Not Detected (NotDetected); Opiate Screen,Urine Not Detected (NotDetected); Oxycodone Screen, Urine Not Detected (NotDetected); Phencyclidine Screen,Urine Not Detected (NotDetected); Tricyclic Antidepressant,Urine Not Detected (NotDetected); Urn Cannabinoid Scrn Not Detected (NotDetected)
[2017-11-07 17:49] LABS: Glucose,Whole Blood 74 mg/dL (75-99)
[2017-11-07 21:00] LABS: Glucose,Whole Blood 106 mg/dL (75-99)
[2017-11-07] MEDS: METOPROLOL TARTRATE 25 MG TAB PO SCH (22:05)
[2017-11-08 06:37] LABS: Glucose,Whole Blood 90 mg/dL (75-99)
[2017-11-08] MEDS: LEVOTHYROXINE 50 MCG TAB PO SCH (06:43)
[2017-11-08] MEDS: METOPROLOL TARTRATE 25 MG TAB PO SCH ×2 (09:32→20:20)
[2017-11-08 12:48] LABS: Glucose,Whole Blood 102 mg/dL (75-99)
--- NOTE | 2017-11-08 13:02 | P.PN ---
Subjective Progress Note Date: 11/08/17 Principal diagnosis: Schizophrenia, multiple episodes, currently in partial remission, essential hypertension, hypothyroidism I reviewed the medical record, interviewed the patient and discuss his treatment and treatment plan during team meeting. He is a 57-year-old male who has a well-established diagnosis of a schizophrenia. He presented to the unit voluntarily with complaints of increasing depression. During our interview, he attributed this admission to ambivalence over marrying his live-in girlfriend. He stated that they have talked about her marriage but he becomes extremely anxious thought of marrying her. He is also distressed because he believes she is unaware that he is in the hospital. He denied feeling depressed or having thoughts of or suicide. He denied feeling frightened, scared or paranoid. He denied such psychotic symptoms as auditory, visual or olfactory hallucinations, ideas reference, thought insertion , thought broadcasting or thought control. Objective - Vital Signs Vital signs: Vital Signs Temp 98.3 F 11/08/17 06:20 Pulse 114 H 11/08/17 09:30 Resp 18 11/08/17 09:30 BP 110/66 11/08/17 09:30 Pulse Ox 98 11/06/17 17:00 - Psychiatric Psychiatric Comment(s): He presented as a disheveled appearing elderly male with unkept white hair and mancera. He made eye contact and appeared to attend to the interview. He had poor dentition but no prominent physical abnormalities. He had a blunted but bright facial expression. He was alert and oriented to person, place and time. He showed no abnormality of psychomotor activity. He was not agitated, restless or retarded. He had no abnormal involuntary movements. His speech was spontaneous with decreased rate, volume and rhythm. He had no articulation difficulties. His affect was blunted but stable and appropriate. He denied suicidal ideations, wishes or homicidal ideation. He denied such depressive cognitions as hopelessness, helplessness and worthlessness. He did not express phobias, ideas reference, paranoid ideation or delusional thoughts. His thinking was concrete but his associations were coherent, logical and goal directed. He denied hallucinations and did not appear to be responding to internal stimuli. - Labs CBC & Chem 7: 11/07/17 09:10 11/07/17 09:10 Labs: Abnormal Lab Results - Last 24 Hours (Table) 11/07/17 11/07/17 Range/Units 17:47 20:30 POC Glucose (mg/dL) 74 L 106 H (75-99) mg/dL Assessment and Plan (1) Poor compliance with medication Current Visit: Yes Status: Chronic Priority: High Code(s): Z91.14 - PATIENT'S OTHER NONCOMPLIANCE WITH MEDICATION REGIMEN SNOMED Code(s): 225465437 (2) Hypothyroidism Current Visit: Yes Status: Chronic Priority: Low Code(s): E03.9 - HYPOTHYROIDISM, UNSPECIFIED SNOMED Code(s): 25746750 (3) Essential hypertension Current Visit: Yes Status: Chronic Priority: Low Code(s): I10 - ESSENTIAL (PRIMARY) HYPERTENSION SNOMED Code(s): 56294956 (4) Schizophrenia Current Visit: No Status: Chronic Priority: High Code(s): F20.9 - SCHIZOPHRENIA, UNSPECIFIED SNOMED Code(s): 74740355 Plan: Continue inpatient hospitalization to reinitiate treatment with antipsychotic. He received Risperdal Consta 50 mg IM yesterday. Continue Synthroid and Lopressor as recommended by the help desk consultant ski lift operator. Encourage participation in therapeutic groups and activities. Coordinate discharge and aftercare with community mental health. Consider discharge after the [place]'s law hearing to assure adequate mental health aftercare. Evaluate clinical status and response to treatment daily basis.
[2017-11-09] MEDS: LEVOTHYROXINE 50 MCG TAB PO SCH (05:55)
[2017-11-09] MEDS: METOPROLOL TARTRATE 25 MG TAB PO SCH ×2 (09:01→20:20)
--- NOTE | 2017-11-09 13:23 | P.PN ---
Progress Note - Text Interval history: The patient is found in his room he follows me to an interview room. The patient states he admitted himself to the hospital as he was feeling more depressed. It appears that he has a long-standing history of psychosis and was previously on Risperdal Consta. He states he's been off of that medication for approximately 8 months with no community mental health follow-up. The Risperdal Consta has been recently restarted. He reports feeling safe in the hospital he reports appetite is stable. He reports feeling safe here and expresses some concern about his female roommate. Mental status exam: The patient has a disheveled appearance he has weight behavior he wears a mancera. He is dressed in hospital gowns. He is very soft- spoken. He feels that his moods better he is a smiling affect throughout the session. He is reporting no auditory or visual hallucinations or specific delusions. He does not appear to be responding to internal stimuli during our session. He is seated calmly although he does frequently moves hands. No tremor or abnormal involuntary movement observed. No verbal or physical aggressiveness. He has little spontaneous speech but does provide answers to questions asked. Insight and judgment limited. Plan: The patient's will continue on the Risperdal Consta as prescribed. We will monitor him for safety and encourage his participation in the milieu. Vital signs reviewed.
[2017-11-10] MEDS: LEVOTHYROXINE 50 MCG TAB PO SCH (06:21)
[2017-11-10] MEDS: METOPROLOL TARTRATE 25 MG TAB PO SCH ×2 (09:10→22:11)
--- NOTE | 2017-11-10 12:49 | P.PN ---
Progress Note - Text Interval history: The patient's is found in his room he follows me to an interview room. He reported he did not feel like participating in groups today. He provides no particular reason. He states he feels less depressed than yesterday. He is looking forward to going home. He has no questions regarding his medication. Mental status exam: The patient is alert he is a disheveled appearance he is wearing appear large eyeglasses he is dressed in hospital attire. He has no spontaneous speech but provides answers to questions asked. He is cooperative and pleasant. He demonstrates no verbal or physical aggressiveness he demonstrates no abnormal involuntary movements. He denies having any suicidal or homicidal ideation intent or plan. He does not feel particularly anxious. Plan: The patient will continue on his current psychotropic medication. We will monitor him for safety and encourage further participation in the milieu. Vital signs reviewed.
[2017-11-11] MEDS: LEVOTHYROXINE 50 MCG TAB PO SCH (06:06)
[2017-11-11] MEDS: METOPROLOL TARTRATE 25 MG TAB PO SCH ×2 (09:14→20:17)
--- NOTE | 2017-11-11 14:54 | P.PN ---
Subjective Progress Note Date: 11/11/17 Principal diagnosis: Schizophrenia, multiple episodes, currently in partial remission, essential hypertension, hypothyroidism I reviewed the medical record, interviewed the patient and discuss his treatment and treatment plan during team meeting. He denied problems or concerns other than "feeling tired". He denied feeling depressed or having thoughts of or suicide. He denied feeling frightened, scared or paranoid. He denied such psychotic symptoms as auditory, visual or olfactory hallucinations, ideas reference, thought insertion, thought broadcasting or thought control. According to the [facility] liaison he left treatment after his Alternative Treatment Order . Objective - Vital Signs Vital signs: Vital Signs Temp 98.2 F 11/11/17 06:30 Pulse 122 H 11/11/17 09:15 Resp 20 11/11/17 09:15 BP 113/83 11/11/17 09:15 Pulse Ox 98 11/06/17 17:00 Intake & Output 11/10/17 11/11/17 11/11/17 18:59 06:59 18:59 Weight 66.7 kg - Psychiatric Psychiatric Comment(s): He presented as a thin pale appearing 57-year-old male with fischer hair and mancera. He showed psychomotor retardation but no abnormal movements. Her speech was not spontaneous and had decreased rate and rhythm. His affect was flat. He denied suicidal ideations, wishes or homicidal ideation. He denied feeling hopeless, helpless or worthless. He did not express ideas reference, paranoid ideation or delusional thoughts. His thinking was concrete and his associations appeared logical, coherent and goal directed. He denied hallucinations (auditory, visual or olfactory) and did not appear to be responding to internal stimuli. - Labs CBC & Chem 7: 11/07/17 09:10 11/07/17 09:10 Assessment and Plan Assessment: Overall, he appears moderately mentally ill and moderately improve from admission (1) Poor compliance with medication Current Visit: Yes Status: Chronic Priority: High Code(s): Z91.14 - PATIENT'S OTHER NONCOMPLIANCE WITH MEDICATION REGIMEN SNOMED Code(s): 424718812 (2) Hypothyroidism Current Visit: Yes Status: Chronic Priority: Low Code(s): E03.9 - HYPOTHYROIDISM, UNSPECIFIED SNOMED Code(s): 61484805 (3) Essential hypertension Current Visit: Yes Status: Chronic Priority: Low Code(s): I10 - ESSENTIAL (PRIMARY) HYPERTENSION SNOMED Code(s): 50557705 (4) Schizophrenia Current Visit: No Status: Chronic Priority: High Code(s): F20.9 - SCHIZOPHRENIA, UNSPECIFIED SNOMED Code(s): 43954321 Plan: Continue inpatient hospitalization to reinitiate treatment with antipsychotic. His last dose of Risperdal Consta 50 mg IM was administered on 11/07/2017. Continue Synthroid and Lopressor as recommended by the technology applications consultant personnel adviser. Encourage participation in therapeutic groups and activities. Coordinate discharge and aftercare with [facility]. Evaluate clinical status and response to treatment daily basis.
[2017-11-12] MEDS: LEVOTHYROXINE 50 MCG TAB PO SCH (05:38)
[2017-11-12] MEDS: METOPROLOL TARTRATE 25 MG TAB PO SCH ×2 (09:30→21:14)
[2017-11-12 09:39] VITALS: RESP 16
--- NOTE | 2017-11-12 14:35 | P.PN ---
Subjective Progress Note Date: 11/12/17 Principal diagnosis: Schizophrenia, multiple episodes, currently in partial remission, essential hypertension, hypothyroidism I reviewed the medical record, interviewed the patient and discuss his treatment and treatment plan during team meeting. He would not get out of bed, make eye contact or speak with me in the morning. In the afternoon he came to my office. His primary concern was discharge. We talked about psychiatric treatment and aftercare. He stated that he does not want to continue the psychiatric medications after discharge because of the way they "make me feel." He was unwilling or unable to describe the subject effects of risperidone. He conceded that he would continue the medication if "I have to." We also talked about aftercare. He is reluctant to resume treatment with [facility] and asked about a "private clinic" that he could attend. I referred him to the social director to discussed aftercare alternatives. He denied feeling depressed or having thoughts of or suicide. He denied feeling frightened, scared or paranoid. He denied such psychotic symptoms as auditory, visual or olfactory hallucinations, ideas reference, thought insertion , thought broadcasting or thought control. Objective - Vital Signs Vital signs: Vital Signs Temp 98.1 F 11/12/17 06:35 Pulse 123 H 11/12/17 09:25 Resp 16 11/12/17 09:25 BP 108/73 11/12/17 09:25 Pulse Ox 96 11/12/17 06:35 - Psychiatric Psychiatric Comment(s): He presented as a thin pale appearing 57-year-old male with an unkempt fischer hair and mancera. He showed psychomotor retardation and some involuntary movements of his legs and hands. Her speech was spontaneous and had decreased rate and rhythm. His affect was flat. He denied suicidal ideations, wishes or homicidal ideation. He denied feeling hopeless, helpless or worthless. He did not express ideas reference, paranoid ideation or delusional thoughts. His thinking was concrete and his associations appeared logical, coherent and goal directed. He denied hallucinations ( auditory, visual or olfactory) and did not appear to be responding to internal stimuli. - Labs CBC & Chem 7: 11/07/17 09:10 11/07/17 09:10 Assessment and Plan Assessment: Overall, he appears moderately mentally ill and moderately improve from admission (1) Poor compliance with medication Current Visit: Yes Status: Chronic Priority: High Code(s): Z91.14 - PATIENT'S OTHER NONCOMPLIANCE WITH MEDICATION REGIMEN SNOMED Code(s): 367830642 (2) Hypothyroidism Current Visit: Yes Status: Chronic Priority: Low Code(s): E03.9 - HYPOTHYROIDISM, UNSPECIFIED SNOMED Code(s): 19879856 (3) Essential hypertension Current Visit: Yes Status: Chronic Priority: Low Code(s): I10 - ESSENTIAL (PRIMARY) HYPERTENSION SNOMED Code(s): 39275596 (4) Schizophrenia Current Visit: No Status: Chronic Priority: High Code(s): F20.9 - SCHIZOPHRENIA, UNSPECIFIED SNOMED Code(s): 23212240 Plan: Continue inpatient hospitalization to reinitiate treatment with antipsychotic. Begin risperidone 1 mg by mouth twice a day and continue until his next injection of Risperdal Consta 50 mg IM (last administered on 11/07/2017). Continue Synthroid and Lopressor as recommended by the customer experience consultant boiler fireman. Encourage participation in therapeutic groups and activities. Coordinate discharge and aftercare with [facility]. Consider discharge on 11/13/2017. Evaluate clinical status and response to treatment daily basis.
[2017-11-12] MEDS: risperiDONE 1 MG TAB PO SCH (21:15)
[2017-11-13] MEDS: LEVOTHYROXINE 50 MCG TAB PO SCH (06:45)
[2017-11-13 06:46] VITALS: BP 108/69; PULSE 75; TEMP 97.8
[2017-11-13] MEDS: risperiDONE 1 MG TAB PO SCH (08:24)
[2017-11-13] MEDS: METOPROLOL TARTRATE 25 MG TAB PO SCH (08:24)
--- NOTE | 2017-11-13 12:01 | P.DS ---
Providers Date of admission: 11/06/17 16:09 Attending physician: Richar Redmond MD Consults: 11/07/17 16:31 Consult Physician Routine Consulting Provider: Chris Hassan Consult Reason/Comments: H&P Do you want consulting provider notified?: Already Contacted Primary care physician: Pooja Padilla - Discharge Diagnosis(es) (1) Schizophrenia Current Visit: No Status: Chronic Priority: High (2) Poor compliance with medication Current Visit: Yes Status: Chronic Priority: High (3) Hypothyroidism Current Visit: Yes Status: Chronic Priority: Low (4) Essential hypertension Current Visit: Yes Status: Chronic Priority: Low Hospital Course: Patient is a 57-year-old single male who has a history of a schizophrenia. He presented voluntarily to the psychiatric unit with complaints of worsening depression. He attributed his depression to his ambivalence over marrying his live-in girlfriend. He stated that he been talking about marriage but he becomes extremely anxious with a thought of marrying her. The most prominent finding on the initial examination was psychomotor slowing, inappropriate affect with inappropriate smiling and giggling. His thinking was concrete but he does not appear paranoid or experiencing hallucinations. We admitted him to the psychiatric unit under the care of this commercial insurance underwriter. We provided a comprehensive biopsychosocial assessment. The licensed tax consultant curtain stitcher completed initial physical exam and medical history and diagnosed hypothyroidism and essential hypertension. The consulted recommended to check the TSH and resume Synthroid 50 g daily and Lopressor 25 mg twice a day. The TSH was 2.12. We resumed risperidone Consta 50 mg every 2 weeks IM and prescribed risperidone 1 mg by mouth twice a day. Next injection of Risperdal Consta is scheduled for 11/21/2017. He participated intermittently with therapeutic groups and activities. He spent much of his time alone and did not associate much with staff and peers. He posed no management problem and required no emergency medications for behavioral dyscontrol. At the time of discharge he presented as a tall thin elderly male with a thick fischer hair and mancera. He made eye contact and appeared to attend to the interview. He had poor dentition but no physical abnormalities. He showed psychomotor slowing. His speech was spontaneous with decreased rhythm and volume. His speech was slightly dysarthric. His affect was flat. He denied suicidal ideation, wishes or homicidal ideation. He denied such depressive cognitions as hopelessness, helplessness or worthlessness. He ruminated about discharge. He did not express ideas reference, paranoid ideation or delusional thoughts. His taking was concrete but his associations were coherent, logical and goal directed. He denied hallucinations and did not appear to responding to internal stimuli. Patient Condition at Discharge: Stable Plan - Discharge Summary Discharge Rx Participant: No New Discharge Prescriptions: New risperiDONE [RisperDAL] 1 mg PO BID #60 tab Continue risperiDONE MICROSPHERES [RisperDAL CONSTA] 50 mg IM Q14D #1 syr Levothyroxine Sodium [Synthroid] 50 mcg PO DAILY #30 tab Metoprolol Tartrate [Lopressor] 25 mg PO BID #60 tab Discharge Medication List risperiDONE MICROSPHERES [RisperDAL CONSTA] 50 mg IM Q14D #1 syr 03/11/17 [Rx] Levothyroxine Sodium [Synthroid] 50 mcg PO DAILY #30 tab 11/13/17 [Rx] Metoprolol Tartrate [Lopressor] 25 mg PO BID #60 tab 11/13/17 [Rx] risperiDONE [RisperDAL] 1 mg PO BID #60 tab 11/13/17 [Rx] Follow up Appointment(s)/Referral(s): [facility] [Outside] - 11/18/17 8:00 am (11-18-17 @ 8:[address] Aceves 11-19-17 @ 4:00 with [facility]) Pooja Padilla MD [Primary Care Provider] - 1-2 days Discharge Disposition: HOME SELF-CARE
== END 2017-11-13 14:50 | disposition home or self-care (01) | DRG 885 ==
LOC: EC 13:36 → 3MHU 16:09
PROVIDERS: ADMIT Psychiatry & Neurology Psychiatry; ATTEND Psychiatry & Neurology Psychiatry
DX: F20.9 Schizophrenia, unspecified (principal); E03.9 Hypothyroidism, unspecified; F17.210 Nicotine dependence, cigarettes, uncomplicated; I10 Essential (primary) hypertension; J44.9 Chronic obstructive pulmonary disease, unspecified; K21.9 Gastro-esophageal reflux disease without esophagitis; I35.1 Nonrheumatic aortic (valve) insufficiency; Z79.899 Other long term (current) drug therapy; Z88.0 Allergy status to penicillin; Z91.14 Patient's other noncompliance with medication regimen; Z79.890 Hormone replacement therapy; Z82.49 Family history of ischemic heart disease and other diseases of the circulatory system
CPT/HCPCS: 80053; 80061; 80306; 81003; 82075; 83036; 84443; 85025; 99285

== ENCOUNTER 2018-02-19 20:35 | Observation (INO) | payer MEDICARE ==
[2018-02-19] MEDS ORDERED: ASPIRIN 81 MG PO STA (20:53)
[2018-02-19] MEDS ORDERED: NITROGLYCERIN SL TABS 0.4 MG TAB SUBLINGUAL STA (20:53)
--- NOTE | 2018-02-19 21:02 | ED ---
Chest Pain HPI - General Chief Complaint: Chest Pain Stated Complaint: Chest pain Time Seen by Provider: 02/19/18 20:48 Source: patient, RN notes reviewed Mode of arrival: wheelchair Limitations: no limitations - History of Present Illness Initial Comments: This is a 57-year-old male who states he had the onset of chest pain earlier today 6/10 severity left chest pain with the left shoulder currently is 2-3/10 he states was heaviness. She had no cough fevers chills nausea vomiting sweats or other symptoms no personal history of heart disease or is a family history he does have a prior history of smoking history of GERD history of aortic regurgitation MD Complaint: chest pain - Related Data Home Medications Medication Instructions Recorded Confirmed Acetaminophen [Tylenol] 1,000 mg PO Q4-6H PRN 02/19/18 02/19/18 Multivitamins, Thera [Multivitamin 1 tab PO DAILY 02/19/18 02/19/18 (formulary)] Allergies Allergy/AdvReac Type Severity Reaction Status Date / Time Penicillins Allergy Unknown Verified 02/19/18 21:40 Childhood Review of Systems ROS Statement: Those systems with pertinent positive or pertinent negative responses have been documented in the HPI. ROS Other: All systems not noted in ROS Statement are negative. EKG Findings - EKG Results: EKG: interpreted by LUIS ANGEL, sinus rhythm (Sinus rhythm with first-degree AV block rate was 91. We'll 2:30 QRS 124 QT since QTC 384/472 left anterior fascicular block poor R-wave progression) Past Medical History Past Medical History: Asthma, GERD/Reflux Additional Past Medical History / Comment(s): Aortic regurg, ANGELITO with thickend aortic valve 02/26/2017 Dr. Cruz suggested medical management. History of Any Multi-Drug Resistant Organisms: None Reported Past Surgical History: Tonsillectomy Additional Past Surgical History / Comment(s): cyst on neck,wound to abdomen Past Anesthesia/Blood Transfusion Reactions: No Reported Reaction Past Psychological History: Schizophrenia Smoking Status: Former smoker Past Alcohol Use History: None Reported Past Drug Use History: None Reported - Past Family History Mother Family Medical History: Myocardial Infarction ([place]) Father Family Medical History: Myocardial Infarction ([place]) Brother(s) Family Medical History: Myocardial Infarction ([place]) General Exam - General Exam Comments Initial Comments: This is a well-developed well-nourished awake alert oriented 3 male Limitations: no limitations General appearance: alert, in no apparent distress Head exam: Present: atraumatic, normocephalic, normal inspection Eye exam: Present: normal appearance, PERRL, EOMI. Absent: scleral icterus, conjunctival injection, periorbital swelling ENT exam: Present: normal exam, mucous membranes moist Neck exam: Present: normal inspection. Absent: tenderness, meningismus, lymphadenopathy Respiratory exam: Present: normal lung sounds bilaterally, chest wall tenderness (Not similar to when he was feeling earlier no step-off or crepitation). Absent: respiratory distress, wheezes, rales, rhonchi, stridor Cardiovascular Exam: Present: regular rate, normal rhythm, normal heart sounds. Absent: systolic murmur, diastolic murmur, rubs, gallop, clicks GI/Abdominal exam: Present: soft, normal bowel sounds. Absent: distended, tenderness, guarding, rebound, rigid Extremities exam: Present: normal inspection, full ROM, normal capillary refill. Absent: tenderness, pedal edema, joint swelling, calf tenderness Back exam: Present: normal inspection Neurological exam: Present: alert, oriented X3, CN II-XII intact Psychiatric exam: Present: normal affect, normal mood Skin exam: Present: warm, dry, intact, normal color. Absent: rash Course Vital Signs 02/19/18 02/19/18 02/19/18 20:41 21:07 21:34 Temperature 97.8 F Pulse Rate 97 112 H Pulse Rate [ 100 Pulse Oximetery ] Respiratory 18 18 Rate Blood Pressure 129/99 113/67 O2 Sat by Pulse 94 L 96 Oximetry - Reevaluation(s) Reevaluation #1: 02/19/18 21:53 Reevaluation patient reveals that he get some improvement after the medication was given to him. Chest Pain MDM - MDM Review the imaging shows no acute findings. I did discuss the findings with the patient he will be admitted for evaluation by cardiology. The presentation is consistent with unstable angina Critical Care Time Critical Care Time: Yes Critical Care Time: 31 minutes of critical care time which includes initial presentation with history physical labs x-rays reevaluation patient responsive therapy discuss with the admitting physician admitting orders and documentation of the above Disposition Clinical Impression: Unstable angina pectoris, Chest pain Disposition: ADMITTED IP TO THIS HOSP Condition: Stable Referrals: Pooja Padilla MD [Primary Care Provider] - 1-2 days
[2018-02-19 21:21] LABS: Basophils % (A) 1 %; Eosinophils # (A) 0.1 k/uL (0-0.7); Eosinophils % (A) 1 %; HCT 50.9 % (39.0-53.0); HGB 16.7 gm/dL (13.0-17.5); Lymphocytes # (A) 2.1 k/uL (1.0-4.8); Lymphocytes % (A) 29 %; MCH 31.9 pg (25.0-35.0); MCHC 32.8 g/dL (31.0-37.0); MCV 97.2 fL (80.0-100.0); Mean Platelet Volume 7.1; Monocytes # (A) 0.4 k/uL (0-1.0); Monocytes % (A) 5 %; Neutrophils # (A) 4.5 k/uL (1.3-7.7); Neutrophils % (A) 62 %; Platelet Count 286 k/uL (150-450); RBC 5.23 m/uL (4.30-5.90); RDW 12.4 % (11.5-15.5); WBC 7.3 k/uL (3.8-10.6)
--- NOTE | 2018-02-19 21:29 | XR ---
EXAMINATION TYPE: XR chest 2V DATE OF EXAM: 02/19/2018 COMPARISON: NONE HISTORY: Chest pain TECHNIQUE: Frontal and lateral views of the chest are obtained. FINDINGS: Heart and mediastinum are normal. Lungs are clear. Diaphragm is normal. There are chest le ads. Bony thorax is intact. IMPRESSION: Normal chest
[2018-02-19 21:30] LABS: ALT 37 U/L (21-72); AST 24 U/L (17-59); Albumin 4.6 g/dL (3.5-5.0); Alkaline Phosphatase 73 U/L (38-126); Anion Gap 8 mmol/L; Blood Urea Nitrogen 15 mg/dL (9-20); Calcium 10.1 mg/dL (8.4-10.2); Carbon Dioxide 33 mmol/L (22-30); Chloride 103 mmol/L (98-107); Glucose 92 mg/dL (74-99); Magnesium 2.4 mg/dL (1.6-2.3); Potassium 4.7 mmol/L (3.5-5.1); Sodium 144 mmol/L (137-145); Total Bilirubin 0.4 mg/dL (0.2-1.3); Total Protein 7.8 g/dL (6.3-8.2)
[2018-02-19 21:33] LABS: Creatine Kinase 40 U/L (55-170)
[2018-02-19 21:37] LABS: D-Dimer 0.36 mg/L FEU (<0.60); INR 1.1 (<1.2); Partial Thromboplastin Time 25.1 sec (22.0-30.0); Prothrombin Time 10.3 sec (9.0-12.0)
[2018-02-19 21:47] LABS: Creatine Kinase MB 0.5 ng/mL (0.0-2.4); Troponin I <0.012 ng/mL (0.000-0.034)
[2018-02-19] MEDS ORDERED: NITROGLYCERIN SL TABS 0.4 MG TAB SUBLINGUAL PRN (21:55)
[2018-02-19] MEDS ORDERED: HEPARIN SODIUM,PORCINE 5,000 UNIT/ML 1 ML VIAL IV ONE (21:55)
[2018-02-19] MEDS ORDERED: ACETAMINOPHEN TAB 500 MG TAB PO PRN (21:56)
[2018-02-19] MEDS ORDERED: SODIUM CHLORIDE 0.9% 1,000 ML IV SCH (22:00)
[2018-02-19] MEDS ORDERED: HEPARIN SOD,PORK IN 0.45% NACL 25,000 UNIT in 0.45% NACL 1 500ML.BAG IV SCH (22:00)
[2018-02-19 23:01] VITALS: BMI 20.9
[2018-02-20] MEDS: NITROGLYCERIN OINT 1 INCH/GM PACKET TOPICAL SCH ×2 (01:14→06:12)
[2018-02-20 04:57] LABS: Cholesterol 172 mg/dL (<200); Creatine Kinase 35 U/L (55-170); HDL Cholesterol 38 mg/dL (40-60); LDL Cholesterol,Calculated 84 mg/dL (0-99); Triglycerides 249 mg/dL (<150)
[2018-02-20 05:09] LABS: Creatine Kinase MB 0.6 ng/mL (0.0-2.4); Troponin I <0.012 ng/mL (0.000-0.034)
[2018-02-20 07:17] VITALS: RESP 18
[2018-02-20] MEDS ORDERED: ASPIRIN 325 MG TAB PO SCH (09:00)
[2018-02-20] MEDS ORDERED: MULTIVITAMINS, THERA 1 EACH TAB PO SCH (09:00)
[2018-02-20] MEDS ORDERED: REGADENOSON 0.4 MG/5 ML SYRINGE IV ONE (09:52)
[2018-02-20] MEDS ORDERED: CAFFEINE CITRATE 60 MG/3 ML VIAL IV PRN (09:52)
--- NOTE | 2018-02-20 10:23 | P.CRDCN ---
History of Present Illness History of present illness: Mr. Lara is a pleasant 57-year-old male past medical history significant for asthma, gastroesophageal reflux disease, non-rheumatic aortic regurgitation and seizure disorder. He denies history of coronary artery disease , hypertension, dyslipidemia or diabetes mellitus. He follows with Dr. Forbes in the office. We have been asked to see him in consultation for chest pain. He states while sitting down at home he started feeling a tight sensation in the left precordial region with radiation the left shoulder. The discomfort was tight and heavy feeling. There was no radiation to the back, neck, arm or jaw. He felt mildly short of breath and light headed. He denies associated shortness of breath, palpitations, nausea or vomiting. The pain persisted until coming to the hospital. He was given SL nitro and aspirin. His pain did subside shortly after that. He is currently chest pain free. EKG reveals sinus mechanism with first degree AV block, rate 91 with poor R- wave progression noted and left anterior fasicular block. Chest xray negative for an acute cardiopulmonary process. Laboratory data reviewed, hgb 16.7, plt 286, d-dimer 0.36, sodium 144, potassium 4.7, creatinine 0.92, magnesium 2.4, cardiac enzymes negative x2, LDL 84, HDL 38, triglycerides 249, total cholesterol 172. He takes no daily cardiac medications. Most recent stress test in the office 01/2017 was a Lexiscan that was negative for reversible cardiac ischemia. Most recent ANGELITO 02/2017 reveals mild aortic regurgitation, mildly thickened aortic and tricuspid valve with normal LV size and function. Normal aortic root size. Normal mitral valve and no evidence of PFO. Review of Systems At the time of my exam: CONSTITUTIONAL: Denies fever. Denies chills. EYES: Denies blurred vision. Denies vision changes. Denies eye pain. EARS, NOSE, MOUTH & THROAT: Denies headache. Denies sore throat. Denies ear pain. CARDIOVASCULAR: Denies chest pain. Denies shortness of breath. Denies orthopnea. Denies PND. Denies palpitations. RESPIRATORY: Denies cough. GASTROINTESTINAL: Denies abdominal pain. Denies diarrhea. Denies constipation. Denies nausea. Denies vomiting. MUSCULOSKELETAL: Denies myalgias. INTEGUMENTARY: Denies pruitis. Denies rash. NEUROLOGIC: Denies numbness. Denies tingling. Denies weakness. PSYCHIATRIC: Denies anxiety. Denies depression. ENDOCRINE: Denies fatigue. Denies weight change. Denies polydipsia. Denies polyurina. GENITOURINARY: Denies burning, hematuria or urgency with micturation. HEMATOLOGIC: Denies history of anemia. Denies bleeding. Past Medical History Past Medical History: Asthma, GERD/Reflux, Seizure Disorder Additional Past Medical History / Comment(s): Aortic regurg, ANGELITO with thickend aortic valve 02/26/2017 Dr. Cruz suggested medical management. last seizures in 2015. high cholestrol in the past no meds now History of Any Multi-Drug Resistant Organisms: None Reported Past Surgical History: Tonsillectomy Additional Past Surgical History / Comment(s): cyst on neck,wound to abdomen Past Anesthesia/Blood Transfusion Reactions: No Reported Reaction Past Psychological History: Schizophrenia Smoking Status: Former smoker Past Alcohol Use History: None Reported Additional Past Alcohol Use History / Comment(s): . Past Drug Use History: None Reported - Past Family History Mother Family Medical History: Myocardial Infarction ([place]) Father Family Medical History: Myocardial Infarction ([place]) Brother(s) Family Medical History: Myocardial Infarction ([place]) Medications and Allergies Home Medications Medication Instructions Recorded Confirmed Type Acetaminophen [Tylenol] 1,000 mg PO Q4-6H PRN 02/19/18 02/19/18 History Multivitamins, Thera [Multivitamin 1 tab PO DAILY 02/19/18 02/19/18 History (formulary)] Allergies Allergy/AdvReac Type Severity Reaction Status Date / Time Penicillins Allergy Unknown Verified 02/19/18 21:40 Childhood Physical Exam Vitals: Vital Signs Temp Pulse Pulse Resp BP BP Pulse Ox 02/20/18 07:05 98.2 F 68 18 123/79 98 02/20/18 03:55 16 02/20/18 03:30 98.2 F 86 16 123/81 97 02/19/18 23:13 16 02/19/18 22:45 97.7 F 87 16 113/71 98 02/19/18 22:34 97.7 F 92 18 109/52 97 02/19/18 21:34 112 H 18 113/67 96 02/19/18 21:07 100 02/19/18 20:41 97.8 F 97 18 129/99 94 L Intake and Output 02/19/18 02/20/18 02/20/18 22:59 06:59 14:59 Intake Total 97.648 Balance 97.648 Intake: Intake, IV Titration 97.648 Amount Heparin Sod,Pork in 0.45% 97.648 NaCl 25,000 unit In 0.45 % NaCl 1 500ml.bag @ 12 UNITS/KG/HR 16.32 mls/hr IV .Q24H [facility] Rx#: [id number] Other: Voiding Method Toilet Toilet # Voids 1 2 Weight 70.1 kg Blood pressure 123/79 heart rate 68 afebrile maintaining oxygen saturation on room air GENERAL: This is a 57-year-old male in no apparent distress at the time of my examination. Appears older than stated age. HEENT: Head is atraumatic, normocephalic. Pupils are equal, round. Sclerae anicteric. Conjunctivae are clear. Mucous membranes of the mouth are moist. Neck is supple. There is no jugular venous distention. No carotid bruit is heard. LUNGS: Clear to auscultation no wheezes, rales or rhonchi. No chest wall tenderness is noted on palpation or with deep breathing. Diminished bilaterally. HEART: Regular rate and rhythm without murmurs, rubs or gallops. S1 and S2 heard. ABDOMEN: Soft, nontender. Bowel sounds are heard. No organomegaly noted. EXTREMITIES: No evidence of peripheral edema and no calf tenderness noted. VASCULAR: Radial and dorsalis pedis pulses palpated, no evidence of clubbing. NEUROLOGIC: Patient is awake, alert and oriented x3. Results 02/19/18 20:58 02/19/18 20:58 Cardiac Enzymes 02/19/18 02/19/18 02/20/18 Range/Units 20:58 20:58 03:53 AST 24 (17-59) U/L CK-MB (CK-2) 0.5 0.6 (0.0-2.4) ng/mL Troponin I <0.012 <0.012 (0.000-0.034) ng/mL Coagulation 02/19/18 02/20/18 Range/Units 20:58 03:53 PT 10.3 (9.0-12.0) sec APTT 25.1 46.9 H (22.0-30.0) sec Lipids 02/20/18 Range/Units 03:53 Triglycerides 249 H (<150) mg/dL Cholesterol 172 (<200) mg/dL HDL Cholesterol 38 L (40-60) mg/dL CBC 02/19/18 Range/Units 20:58 WBC 7.3 (3.8-10.6) k/uL RBC 5.23 (4.30-5.90) m/uL Hgb 16.7 (13.0-17.5) gm/dL Hct 50.9 (39.0-53.0) % Plt Count 286 (150-450) k/uL Comprehensive Metabolic Panel 02/19/18 Range/Units 20:58 Sodium 144 (137-145) mmol/L Potassium 4.7 (3.5-5.1) mmol/L Chloride 103 (98-107) mmol/L Carbon Dioxide 33 H (22-30) mmol/L BUN 15 (9-20) mg/dL Creatinine 0.92 (0.66-1.25) mg/dL Glucose 92 (74-99) mg/dL Calcium 10.1 (8.4-10.2) mg/dL AST 24 (17-59) U/L ALT 37 (21-72) U/L Alkaline Phosphatase 73 (38-126) U/L Total Protein 7.8 (6.3-8.2) g/dL Albumin 4.6 (3.5-5.0) g/dL Current Medications Generic Name Dose Route Start Last Admin Trade Name Freq PRN Reason Stop Dose Admin Acetaminophen 1,000 mg 02/19/18 21:56 Tylenol Tab PO Q6HR PRN Pain or Fever > 100.5 Aspirin 325 mg 02/20/18 09:00 Aspirin PO DAILY SAUMYA Heparin Sodium/Sodium Chloride 500 mls @ 16.32 mls/hr 02/19/18 22:00 04:27 25,000 unit/ Sodium Chloride IV 14.03 units/kg/hr .Q24H [facility] 19.1 mls/hr Titration Protocol 12 UNITS/KG/HR Sodium Chloride 1,000 mls @ 20 mls/hr 02/19/18 22:00 02/19/18 22:27 Saline 0.9% IV 20 mls/hr .Q24H SAUMYA Administration Multivitamins 1 each 02/20/18 09:00 Theragran PO DAILY [facility] Nitroglycerin 1 inch 02/20/18 00:00 02/20/18 06:12 Nitro-Bid Oint TOPICAL Not Given Q6HR [facility] Nitroglycerin 0.4 mg 02/19/18 21:55 Nitrostat SUBLINGUAL Q5M PRN Chest Pain Intake and Output 02/19/18 02/20/18 02/20/18 22:59 06:59 14:59 Intake Total 97.648 Balance 97.648 Intake: Intake, IV Titration 97.648 Amount Heparin Sod,Pork in 0.45% 97.648 NaCl 25,000 unit In 0.45 % NaCl 1 500ml.bag @ 12 UNITS/KG/HR 16.32 mls/hr IV .Q24H [facility] Rx#: [id number] Other: Voiding Method Toilet Toilet # Voids 1 2 Weight 70.1 kg 02/19/18 20:58 02/19/18 20:58 Assessment and Plan Assessment: ASSESSMENT Chest pain, an acute coronary event has been ruled out. Aortic regurgitation Chronic nicotine dependence, quit 3 weeks ago. Asthma Gastroesophageal reflux disease PLAN Obtain 2D echocardiogram and doppler study to assess cardiac structure and function. Perform Lexiscan stress test to assess for reversible cardiac ischemia. Recommend ongoing tobacco cessation. If stress test is normal he is stable from a cardiac perspective. Follow up with Dr. Forbes in 2-3 weeks. Thank you kindly for this consultation. Nurse Practitioner note has been reviewed, I agree with a documented findings and plan of care. Patient was seen and examined.
[2018-02-20 10:35] LABS: Creatine Kinase 41 U/L (55-170)
[2018-02-20 10:47] LABS: Creatine Kinase MB 0.5 ng/mL (0.0-2.4); Troponin I <0.012 ng/mL (0.000-0.034)
--- NOTE | 2018-02-20 11:56 | ECHOF ---
Referral Reason: MEASUREMENTS -------- HEIGHT: 182.9 cm WEIGHT: 68.5 kg BP: IVSd: 0.9 cm (0.6 - 1.1) LVIDd: 4.2 cm (3.9 - 5.3) LVPWd: 1.2 cm (0.6 - 1.1) IVSs: 1.4 cm LVIDs: 2.1 cm LVPWs: 2.3 cm Ao Diam: 3.7 cm (2.0 - 3.7) AV Cusp: 2.5 cm (1.5 - 2.6) LA Diam: 3.8 cm (2.7 - 3.8) MV E Lawrence: 0.92 m/s MV DecT: 156 ms MV A Lawrence: 1.18 m/s MV E/A Ratio: 0.78 AR PHT: 527 ms RAP: 5.00 mmHg RVSP: 11.32 mmHg FINDINGS -------- Sinus rhythm. This was a technically good study. The left ventricular size is normal. Left ventricular wall thickness is normal. Overall left vent ricular systolic function is normal with, an EF between 55 - 60 %. The right ventricle is normal in size and function. The left atrium is normal in size. The right atrium is normal in size. Lumason used Aortic valve is trileaflet and is mildly thickened. There is mild aortic regurgitation. The mitral valve leaflets are mildly thickened. Mild mitral annular calcification present. There is trace mitral regurgitation. Trace tricuspid regurgitation present. The right ventricular systolic pressure, as measured by Dopp ler, is 11.32mmHg. Pulmonic valve appears structurally normal. The aortic root size is normal. Normal inferior vena cava with normal inspiratory collapse consistent with estimated right atrial pre ssure of 5 mmHg. The pericardium is normal. CONCLUSIONS -------- 1. Sinus rhythm. 2. This was a technically good study. 3. The left ventricular size is normal. 4. Left ventricular wall thickness is normal. 5. Overall left ventricular systolic function is normal with, an EF between 55 - 60 %. 6. The right ventricle is normal in size and function. 7. The left atrium is normal in size. 8. The right atrium is normal in size. 9. Lumason used 10. Aortic valve is trileaflet and is mildly thickened. 11. There is mild aortic regurgitation. 12. The mitral valve leaflets are mildly thickened. 13. Mild mitral annular calcification present. 14. There is trace mitral regurgitation. 15. Trace tricuspid regurgitation present. 16. The right ventricular systolic pressure, as measured by Doppler, is 11.32mmHg. 17. Pulmonic valve appears structurally normal. 18. The aortic root size is normal. 19. Normal inferior vena cava with normal inspiratory collapse consistent with estimated right atrial pressure of 5 mmHg. 20. The pericardium is normal. PAPER MACHINE BACK TENDER: Jess Mayers RDCS
--- NOTE | 2018-02-20 12:07 | P.STRESS ---
- Stress Test Note Stress Test Results/Findings: Exam Performed: NM stress lexiscan cardiolite Exam Date: 02/20/18 Reason for Exam: CHEST PAIN Height: 5 ft 11 in Weight: 68.039 kg Protocol: LEXISCAN Stage: NA Duration of Exercise: NA Resting Heart Rate: 77 Resting Blood Pressure: 150/86 Maximum Achieved Heart Rate: 127 Maximum Achieved Blood Pressure: 150/86 85% PMHR: NA 100% PMHR: NA METS: NA Technologist Comment: Stress Test Results/Findings: This is a 57-year-old gentleman with was admitted to the hospital with chest pain and shortness of breath. Patient is a smoker. Stress data: Baseline EKG showed sinus rhythm with normal IL interval and QRS duration. Blood pressure at rest is 150/86 with pulse rate of 77. A standard dose of Lexiscan was infused. EKGs taken during and after infusion did not reveal any change of ischemi. Final impression #1. [place] Lexiscan stress test #2. Report on the nuclear Images to begin with the radiologist.
[2018-02-20 12:12] VITALS: BP 138/88; PULSE 88; TEMP 97.7
--- NOTE | 2018-02-20 12:25 | NM ---
EXAMINATION TYPE: NM stress lexiscan cardiolite DATE OF EXAM: 02/20/2018 COMPARISON: NONE HISTORY: 57-year-old male with chest pain TECHNIQUE: After the intravenous administration of 10.18 mCi Tc 99m Sestamibi - Cardiolite resting S PECT images acquired 45 minutes post injection. The patient received 0.4mg Lexiscan, 23.2 mCi Tc 99m Sestamibi - Stress images obtained [address] injection FINDINGS: Review of stress and rest SPECT images shows fixed decreased perfusion along the mid to basal anteros eptal wall. However, there is thickening and augmentation of these regions on gated analysis. Estimat ed left ventricular ejection fraction of 59 %. TID calculated at 0.9, within normal limits. IMPRESSION: Fixed perfusion defect along the inferoseptal wall. However, there is augmentation on gated images an d LVEF of 59%. Old infarct or attenuation artifact are considered with the latter being favored. Furt her clinical and EKG correlation recommended. No definite suspicious areas of reversibility.
--- NOTE | 2018-02-20 12:57 | EST ---
Stress Test Results/Findings: Exam Performed: NM stress lexiscan cardiolite Exam Date: 02/20/18 Reason for Exam: CHEST PAIN Height: 5 ft 11 in Weight: 68.039 kg Protocol: LEXISCAN Stage: NA Duration of Exercise: NA Resting Heart Rate: 77 Resting Blood Pressure: 150/86 Maximum Achieved Heart Rate: 127 Maximum Achieved Blood Pressure: 150/86 85% PMHR: NA 100% PMHR: NA METS: NA Technologist Comment: Stress Test Results/Findings: This is a 57-year-old gentleman with was admitted to the hospital with chest pain and shortness of breath. Patient is a smoker. Stress data: Baseline EKG showed sinus rhythm with normal VA interval and QRS duration. Blood pressure at rest is 150/86 with pulse rate of 77. A standard dose of Lexiscan was infused. EKGs taken during and after infusion did not reveal any change of ischemi. Final impression #1. [place] Lexiscan stress test #2. Report on the nuclear Images to begin with the radiologist. RAMON
--- NOTE | 2018-02-20 15:03 | P.HPIM ---
History of Present Illness Combined H and P and discharge summary:- This is a pleasant 57 years old male with past medical history of asthma, GERD, seizure disorder, who follow-up with Dr. Roxana Smith as an outpatient. And who presents because of chest pain of 2 days' duration, on the left side that comes and goes about sick wheezing in character radiating to the left arm. About 2-3/10 in severity. Associated with minimal dyspnea as per patient. No nausea vomiting. No sweating. No jaw pain. No change in urine or bowel habits. No fever. In the emergency room he had 3 sets of troponin negative, EKG no significant ST-T changes, patient has been evaluated by cotton feeder who recommended to go stress test By the time I saw the patient he was still in me is chest pain-free and is now is gone. No dyspnea. And no other physical complaints. Patient has negative stress test: #1. Negative Lexiscan stress test #2. Report on the nuclear Images as per as pre the radiologist: Fixed perfusion defect along the inferior septal wall. However there is augmentation on gated images and LVEF of 59%. Old infarct or attenuation artifact are considered with the latter being favored. A definite suspicious area of reversibility. After the procedure patient was asleep, when I woke him up he was complaining of from mild headache, probably from the procedure and tension. No focal neurological deficit based on my examination. Patient remains chest pain free and no other symptoms similar to my evaluation in the morning Patient was cleared by cardiology team for discharge, and follow-up as an outpatient. Management plan for patient's problems are discussed with him and he verbalized understanding and acceptance Patient was found stable and can be discharged home however he needs follow-up as an outpatient remained an appointment with his PCP. Patient agrees with the time and date of his appointments with cardiology as instructed, told me he is going to follow up Review of Systems CONSTITUTIONAL: No fever, no malaise, no fatigue. HEENT: No recent visual problems or hearing problems. Denied any sore throat. CARDIOVASCULAR: No orthopnea, PND, no palpitations, no syncope. PULMONARY: No shortness of breath, no cough, no hemoptysis. GASTROINTESTINAL: No diarrhea, no nausea, no vomiting, no abdominal pain. Normoactive bowel sounds. NEUROLOGICAL: No headaches, no weakness, no numbness. HEMATOLOGICAL: Denies any bleeding or petechiae. GENITOURINARY: Denies any burning micturition, frequency, or urgency. MUSCULOSKELETAL/RHEUMATOLOGICAL: Denies any joint pain, swelling, or any muscle pain. ENDOCRINE: Denies any polyuria or polydipsia. Past Medical History Past Medical History: Asthma, GERD/Reflux, Seizure Disorder Additional Past Medical History / Comment(s): Aortic regurg, ANGELITO with thickend aortic valve 02/26/2017 Dr. Cruz suggested medical management. last seizures in 2016. high cholestrol in the past no meds now History of Any Multi-Drug Resistant Organisms: None Reported Past Surgical History: Tonsillectomy Additional Past Surgical History / Comment(s): cyst on neck,wound to abdomen Past Anesthesia/Blood Transfusion Reactions: No Reported Reaction Past Psychological History: Schizophrenia Smoking Status: Former smoker Past Alcohol Use History: None Reported Additional Past Alcohol Use History / Comment(s): . Past Drug Use History: None Reported - Past Family History Mother Family Medical History: Myocardial Infarction ([place]) Father Family Medical History: Myocardial Infarction [place]) Brother(s) Family Medical History: Myocardial Infarction ([place]) Medications and Allergies Home Medications Medication Instructions Recorded Confirmed Type Acetaminophen [Tylenol] 1,000 mg PO Q4-6H PRN 02/19/18 02/19/18 History Multivitamins, Thera [Multivitamin 1 tab PO DAILY 02/19/18 02/19/18 History (formulary)] Aspirin 325 mg PO DAILY #30 tab 02/20/18 Rx Nitroglycerin Sl Tabs [Nitrostat] 0.4 mg SUBLINGUAL Q5M PRN #10 tab 02/20/18 Rx Allergies Allergy/AdvReac Type Severity Reaction Status Date / Time Penicillins Allergy Unknown Verified 02/19/18 21:40 Childhood Physical Exam Vitals: Vital Signs Temp Pulse Pulse Resp BP BP Pulse Ox 02/20/18 07:05 98.2 F 68 18 123/79 98 02/20/18 03:55 16 02/20/18 03:30 98.2 F 86 16 123/81 97 02/19/18 23:13 16 02/19/18 22:45 97.7 F 87 16 113/71 98 02/19/18 22:34 97.7 F 92 18 109/52 97 02/19/18 21:34 112 H 18 113/67 96 02/19/18 21:07 100 02/19/18 20:41 97.8 F 97 18 129/99 94 L Intake and Output 02/19/18 02/20/18 02/20/18 22:59 06:59 14:59 Intake Total 97.648 Balance 97.648 Intake: Intake, IV Titration 97.648 Amount Heparin Sod,Pork in 0.45% 97.648 NaCl 25,000 unit In 0.45 % NaCl 1 500ml.bag @ 12 UNITS/KG/HR 16.32 mls/hr IV .Q24H [facility] Rx#: [id number] Other: Voiding Method Toilet Toilet # Voids 1 2 Weight 70.1 kg GENERAL: The patient is alert and oriented x3, not in any acute distress. Well developed, well nourished. HEENT: Pupils are round and equally reacting to light. EOMI. No scleral icterus. No conjunctival pallor. Normocephalic, atraumatic. No pharyngeal erythema. No thyromegaly. CARDIOVASCULAR: S1 and S2 present. No murmurs, rubs, or gallops. PULMONARY: Chest is clear to auscultation, no wheezing or crackles. ABDOMEN: Soft, nontender, nondistended, normoactive bowel sounds. No palpable organomegaly. MUSCULOSKELETAL: No joint swelling or deformity. EXTREMITIES: No cyanosis, clubbing, or pedal edema. NEUROLOGICAL: Gross neurological examination did not reveal any focal deficits. SKIN: No rashes. Results CBC & Chem 7: 02/19/18 20:58 02/19/18 20:58 Labs: Abnormal Lab Results - Last 24 Hours (Table) 02/19/18 02/19/18 02/20/18 Range/Units 20:58 20:58 03:53 APTT (22.0-30.0) sec Carbon Dioxide 33 H (22-30) mmol/L Magnesium 2.4 H (1.6-2.3) mg/dL Total Creatine Kinase 40 L 35 L (55-170) U/L Triglycerides (<150) mg/dL HDL Cholesterol (40-60) mg/dL 02/20/18 02/20/18 02/20/18 Range/Units 03:53 03:53 10:00 APTT 46.9 H (22.0-30.0) sec Carbon Dioxide (22-30) mmol/L Magnesium (1.6-2.3) mg/dL Total Creatine Kinase 41 L (55-170) U/L Triglycerides 249 H (<150) mg/dL HDL Cholesterol 38 L (40-60) mg/dL 02/20/18 Range/Units 10:00 APTT 42.1 H (22.0-30.0) sec Carbon Dioxide (22-30) mmol/L Magnesium (1.6-2.3) mg/dL Total Creatine Kinase (55-170) U/L Triglycerides (<150) mg/dL HDL Cholesterol (40-60) mg/dL Thrombosis Risk Factor Assmnt - Choose All That Apply Each Factor Represents 1 point: Age 41-60 years Thrombosis Risk Factor Assessment Total Risk Factor Score: 1 Thrombosis Risk Factor Assessment Level: Low Risk Assessment and Plan Assessment: Chest pain, rule out acute coronary syndrome Sterile asthma. Not active issue GERD Plan: This is a pleasant 57 years old male who presents because of chest pain. Currently is chest pain-free. Continue with same treatment. Continue with symptomatic treatment. Resume home medications. Monitor lytes and vitals. Cardiology consult is appreciated and they recommended patient going for stress test. As per cardiology if patient is with negative stress test then can be discharged home. DVT and GI prophylaxis. Further recommendations based on the clinical course of the patient DVT prophylaxis: Subcutaneous heparin GI prophylaxis Pepcid Prognosis is guarded
[2018-02-20] MEDS ORDERED: HEPARIN SODIUM,PORCINE 5,000 UNIT/ML 1 ML VIAL SQ SCH (21:00)
[2018-02-20] MEDS ORDERED: FAMOTIDINE 20 MG/2 ML VIAL IV SCH (21:00)
== END 2018-02-20 16:48 | disposition home or self-care (01) ==
LOC: EC 20:35 → 3OBS 21:54
PROVIDERS: ADMIT Hospitalist; ATTEND Hospitalist
DX: R07.89 Other chest pain (principal); I35.1 Nonrheumatic aortic (valve) insufficiency; I44.0 Atrioventricular block, first degree; R51 Headache; K21.9 Gastro-esophageal reflux disease without esophagitis; J45.909 Unspecified asthma, uncomplicated; F20.9 Schizophrenia, unspecified; G40.909 Epilepsy, unspecified, not intractable, without status epilepticus; Z88.0 Allergy status to penicillin; Z87.891 Personal history of nicotine dependence; Z82.49 Family history of ischemic heart disease and other diseases of the circulatory system
CPT/HCPCS: 96366 ×2; 96376; 96365; 99291; 36415; 93005; 93017; 85379; 83880; 80061; 80053; 82550 ×2; 82553 ×2; 83735; 84484 ×2; 85025; 85610; 85730 ×2; 71046; 78452; G0378 ×2; C8929; A9500; J1644 ×2; J2785; Q9950; 93306

== ENCOUNTER 2018-09-27 03:45 | Emergency (ER) | payer MEDICARE ==
[2018-09-27 03:54] VITALS: BP 128/86; PULSE 100; RESP 18; TEMP 97.3
--- NOTE | 2018-09-27 04:14 | ED ---
General Adult HPI - General Chief complaint: Extremity Injury, Upper Stated complaint: Fall Lt Shoulder Injury Time Seen by Provider: 09/27/18 03:53 Source: patient Mode of arrival: ambulatory Limitations: no limitations - History of Present Illness Initial comments: Carmen is a pleasant 58-year-old gentleman who presents to the emergency department today for evaluation of left shoulder pain. Patient reports that he was sleeping soundly when he rolled out of his bed and landed on his left shoulder is concerned that he may have broken his collarbone. Patient believes he may have bumped his head but did not lose consciousness. Patient reports that immediately after falling he was able to stand was and disoriented actually walked to the emergency department from his home. Patient denies any other injuries or complaints. - Related Data Home Medications Medication Instructions Recorded Confirmed Acetaminophen [Tylenol] 1,000 mg PO Q4-6H PRN 02/19/18 02/19/18 Multivitamins, Thera [Multivitamin 1 tab PO DAILY 02/19/18 02/19/18 (formulary)] Previous Rx's Medication Instructions Recorded Aspirin 325 mg PO DAILY #30 tab 02/20/18 Nitroglycerin Sl Tabs [Nitrostat] 0.4 mg SUBLINGUAL Q5M PRN #10 tab 02/20/18 Allergies Allergy/AdvReac Type Severity Reaction Status Date / Time Penicillins Allergy Unknown Verified 02/19/18 21:40 Childhood Review of Systems ROS Statement: Those systems with pertinent positive or pertinent negative responses have been documented in the HPI. ROS Other: All systems not noted in ROS Statement are negative. Past Medical History Past Medical History: Asthma, GERD/Reflux, Seizure Disorder Additional Past Medical History / Comment(s): Aortic regurg, ANGELITO with thickend aortic valve 02/26/2017 Dr. Cruz suggested medical management. last seizures in 2015. high cholestrol in the past no meds now History of Any Multi-Drug Resistant Organisms: None Reported Past Surgical History: Tonsillectomy Additional Past Surgical History / Comment(s): cyst on neck,wound to abdomen Past Anesthesia/Blood Transfusion Reactions: No Reported Reaction Past Psychological History: Schizophrenia Smoking Status: Former smoker Past Alcohol Use History: None Reported Past Drug Use History: None Reported - Past Family History Mother Family Medical History: Myocardial Infarction ([place]) Father Family Medical History: Myocardial Infarction [place]) Brother(s) Family Medical History: Myocardial Infarction ([place]) General Exam - General Exam Comments Initial Comments: Physical Exam GENERAL: Appears much older than stated age, poor personal hygiene Patient is well-developed and well-nourished. Patient is nontoxic and well-hydrated and is in no distress. HENT: Normocephalic, Atraumatic. No quiroga signs or raccoon eyes TMs normal bilaterally, no hemotympanum EYES: PERRL, EOMI PULMONARY: Unlabored respirations. No audible rales rhonchi or wheezing was noted. CARDIOVASCULAR: There is a regular rate and rhythm without any murmurs gallops or rubs. ABDOMEN: Soft and nontender with normal bowel sounds. SKIN: Skin is clear with no lesions or rashes and otherwise unremarkable. : Deferred NEUROLOGIC: Patient is alert and oriented x3. Moving all extremities spontaneously MUSCULOSKELETAL: Decreased range of motion of left shoulder secondary to pain PSYCHIATRIC: Odd affect Limitations: no limitations Limitations: no limitations Course Vital Signs 09/27/18 03:50 Temperature 97.3 F L Pulse Rate 100 Respiratory 18 Rate Blood Pressure 128/86 O2 Sat by Pulse 98 Oximetry Medical Decision Making - Medical Decision Making The patient was seen and evaluated, history is obtained from the patient Patient with pain in the left shoulder, pain to palpation of the clavicle, no obvious head trauma but does report hitting his head he's not on any anticoagulant or antiplatelet medications Imaging ordered X-rays confirmed a distal clavicle fracture CT head with no acute findings Results were discussed with patient patient's arm was placed in a sling and he was discharged home in stable condition. Disposition Clinical Impression: Fracture of clavicle Disposition: HOME SELF-CARE Instructions (If sedation given, give patient instructions): Clavicle Fracture (ED) Is patient prescribed a controlled substance at d/c from ED?: No Referrals: Pooja Padilla MD [Primary Care Provider] - 1-2 days [facility] [Provider Group] - 1-2 days
--- NOTE | 2018-09-27 04:35 | XR ---
EXAM: XR Left Clavicle Complete, 2 or More Views CLINICAL HISTORY: ITS.REASON XR Reason: Pain TECHNIQUE: Frontal and lordotic views of the left clavicle. COMPARISON: No relevant prior studies available. IMPRESSION: Comminuted fracture through the distal clavicle. The acromioclavicular joint is intact.
[2018-09-27] MEDS ORDERED: ACET/COD 300 MG/30 MG STARTER PACK 6 TAB BTL PO STA (04:43)
--- NOTE | 2018-09-27 04:47 | XR ---
EXAM: XR Left Shoulder Complete, 2 or More Views CLINICAL HISTORY: ITS.REASON XR Reason: Pain TECHNIQUE: Two or more views of the left shoulder. COMPARISON: No relevant prior studies available. IMPRESSION: Comminuted fracture of the distal clavicle. Humerus and glenoid rim is intact.
--- NOTE | 2018-09-27 04:50 | CT ---
EXAM: CT Head Without Intravenous Contrast CLINICAL HISTORY: ITS.REASON CT Reason: Pain TECHNIQUE: Axial computed tomography images of the head/brain without intravenous contrast. CTDI is 54 mGy and DLP is 1271 mGy-cm. This CT exam was performed using one or more of the following dose reduction techniques: automated exposure control, adjustment of the mA and/or kV according to patient size, and/or use of iterative reconstruction technique. COMPARISON: No relevant prior studies available. FINDINGS: Brain: No hemorrhage, large hypodensity, or mass effect. Ventricles: No hydrocephalus. Bones/joints: Unremarkable. Soft tissues: Unremarkable. Sinuses: Unremarkable. Mastoid air cells: Clear. IMPRESSION: No acute hemorrhage, hydrocephalus, or mass effect. EXAM: CT Cervical Spine Without Intravenous Contrast CLINICAL HISTORY: ITS.REASON CT Reason: Pain TECHNIQUE: Axial computed tomography images of the cervical spine without intravenous contrast. CTDI is 54 mGy and DLP is 1271 mGy-cm. This CT exam was performed using one or more of the following dose reduction techniques: automated exposure control, adjustment of the mA and/or kV according to patient size, and/or use of iterative reconstruction technique. COMPARISON: No relevant prior studies available. FINDINGS: Vertebrae: No acute fracture. Discs/spinal canal/neural foramina: No spinal canal stenosis. Soft tissues: Mild centrilobular emphysema. IMPRESSION: No acute fracture or subluxation.
== END 2018-09-27 05:21 | disposition home or self-care (01) ==
LOC: EC 03:45
DX: S42.032A Displaced fracture of lateral end of left clavicle, initial encounter for closed fracture (principal); Z87.891 Personal history of nicotine dependence; Z88.0 Allergy status to penicillin; W06.XXXA Fall from bed, initial encounter; Y92.009 Unspecified place in unspecified non-institutional (private) residence as the place of occurrence of the external cause
CPT/HCPCS: 70450; 72125; 99284